=== PATIENT | male | born 1945 | race Caucasian/White ===

== ENCOUNTER → 2017-10-18 10:00 | Outpatient (CLI) | payer MEDICARE, OTHER, SELFPAY | PROVIDERS: PCP Emergency Medicine; Visit Provider Orthopaedic Surgery | DX: M25.562 Pain in left knee (principal) | CPT/HCPCS: 99213 ==

== ENCOUNTER 2017-10-25 00:33 | Outpatient (CLI) | payer MEDICARE, OTHER, SELFPAY ==
--- NOTE | 2017-10-25 08:40 | DI.MRI_ITS ---
SYMPTOM/DIAGNOSIS: LT TORN MEDIAL MENISCUS TEAR, LT KNEE PAIN LEFT KNEE MRI: 10/25 MRI examination of the knee was performed according to the usual protocol. There is a moderate size knee joint effusion. There is irregular cartilage thinning at the patellofemoral joint consistent with degenerative change. There also appears to be cartilage thinning of the articular cartilage of medial and lateral tibiofemoral joints although the cartilage is not ideally displayed on this examination. There is no evidence of a cruciate ligament tear. Medial meniscus shows deformity of the body and posterior horn with a probable posterior horn attachment tear and possible mid-body tear. Lateral meniscus appears intact. No significant lateral collateral ligament tear. No significant medial collateral ligament tear. There is abnormal signal of medial tibial plateau which may represent findings related to DJD vs a bony trabecular injury. No other significant bony signal abnormality seen. CONCLUSION: Degenerative changes and presumed medial meniscal tear involving the posterior attachment as described above.
== END 2017-10-25 00:53 ==
PROVIDERS: PCP Emergency Medicine; Visit Provider Orthopaedic Surgery
DX: M25.562 Pain in left knee (principal); M17.12 Unilateral primary osteoarthritis, left knee; S83.242A Other tear of medial meniscus, current injury, left knee, initial encounter
CPT/HCPCS: 73721

== ENCOUNTER → 2017-11-02 08:18 | Outpatient (BNVA) | payer MEDICARE, OTHER, SELFPAY | PROVIDERS: PCP Emergency Medicine; Visit Provider Orthopaedic Surgery | DX: S83.232A Complex tear of medial meniscus, current injury, left knee, initial encounter (principal); M17.12 Unilateral primary osteoarthritis, left knee; X58.XXXA Exposure to other specified factors, initial encounter | CPT/HCPCS: 99213 ==

== ENCOUNTER 2017-12-16 10:33 | Outpatient (CLI) | payer MEDICARE, OTHER, SELFPAY ==
[2017-12-16 13:22] LABS: Hemoglobin A1C 9.1 % (4.5-6.2)
[2017-12-16 13:28] LABS: ALT 29 U/L (12-78); AST 15 U/L (15-37); Alkaline Phosphatase 53 U/L (46-116); Anion Gap 14.4 mmol/L (3-11); BUN 21 mg/dL (7-18); Bilirubin, Total 0.5 mg/dL (0.2-1.0); CO2 25.6 mmol/L (21.0-32.0); CREATININE 1.32 mg/dL (0.70-1.30); Calcium 9.8 mg/dL (8.5-10.1); Chloride 98 mmol/L (98-107); Estimated GFR 53.02 (mL/min/1.73m2); Glucose 259 mg/dL (70-100); Potassium 4.8 mmol/L (3.5-5.1); Sodium 138 mmol/L (136-145); Total Protein 7.2 g/dL (6.4-8.2)
[2017-12-19 10:10] LABS: PSA, Screening 11.4 ng/ml (0-6.5)
== END 2017-12-16 10:53 ==
PROVIDERS: PCP Emergency Medicine; Visit Provider Emergency Medicine
DX: E11.9 Type 2 diabetes mellitus without complications (principal); R97.20 Elevated prostate specific antigen [PSA]; I10 Essential (primary) hypertension; Z12.5 Encounter for screening for malignant neoplasm of prostate
CPT/HCPCS: 36415; 80053; 84153; 83036

== ENCOUNTER 2018-11-28 07:00 | Outpatient (CLI) | payer MEDICARE, OTHER, SELFPAY ==
[2018-11-28 13:23] LABS: Anion Gap 7.7 mmol/L (3-11); BUN 21 mg/dL (7-18); CO2 28.3 mmol/L (21.0-32.0); CREATININE 1.31 mg/dL (0.70-1.30); Calcium 9.4 mg/dL (8.5-10.1); Calculated LDL 128 mg/dL; Chloride 102 mmol/L (98-107); Cholesterol 202 mg/dL (50-200); Estimated GFR 53.34 (mL/min/1.73m2); Glucose 279 mg/dL (70-100); HDL Cholesterol 38 mg/dL (40-60); Potassium 4.5 mmol/L (3.5-5.1); Sodium 138 mmol/L (136-145); Triglyceride 181 mg/dL (30-150)
[2018-11-28 13:24] LABS: Hemoglobin A1C 9.8 % (4.5-6.2)
[2018-11-29 10:01] LABS: PSA, Diagnostic 13.6 ng/ml (0-6.5)
== END 2018-11-28 07:20 ==
PROVIDERS: PCP Emergency Medicine; Visit Provider Emergency Medicine
DX: E11.9 Type 2 diabetes mellitus without complications (principal); C61 Malignant neoplasm of prostate
CPT/HCPCS: 36415; 80048; 80061; 83036; 84153

== ENCOUNTER 2019-12-18 12:03 | Outpatient (REF) | payer MEDICARE, OTHER, SELFPAY ==
[2019-12-18 14:20] LABS: Anion Gap 7.3 mmol/L (3-11); BUN 19 mg/dL (7-18); CO2 28.7 mmol/L (21.0-32.0); CREATININE 1.35 mg/dL (0.70-1.30); Calcium 9.9 mg/dL (8.5-10.1); Chloride 100 mmol/L (98-107); Estimated GFR 51.38 (mL/min/1.73m2); Glucose 214 mg/dL (74-106); Potassium 4.5 mmol/L (3.5-5.1); Sodium 136 mmol/L (136-145)
[2019-12-18 14:32] LABS: Hemoglobin A1C 8.1 % (<5.7)
[2019-12-27 12:45] LABS: PSA, Diagnostic 19.9 ng/ml (0-6.5)
== END 2019-12-18 12:23 ==
LOC: LBN 12:03
PROVIDERS: PCP Emergency Medicine; Visit Provider Emergency Medicine
DX: E11.9 Type 2 diabetes mellitus without complications (principal); I10 Essential (primary) hypertension; C61 Malignant neoplasm of prostate
CPT/HCPCS: 80048; 83036; 84153

== ENCOUNTER → 2020-02-04 09:25 | Outpatient (BNVA) | payer MEDICARE, OTHER, SELFPAY | PROVIDERS: PCP Emergency Medicine; Referring Provider Emergency Medicine; Visit Provider Nurse Practitioner Gerontology | DX: N40.2 Nodular prostate without lower urinary tract symptoms (principal); R97.20 Elevated prostate specific antigen [PSA]; I10 Essential (primary) hypertension; E11.9 Type 2 diabetes mellitus without complications | CPT/HCPCS: 99204; 99215 ==

== ENCOUNTER 2020-05-02 14:52 | Outpatient (CLI) | payer MEDICARE, OTHER, SELFPAY ==
--- NOTE | 2020-05-02 14:45 | RT.EKG_ITS ---
APPROVED REPORT Exam: Resting ECG Patient Location: O HR:131 bpm ECG Measurements Heart Rate 131 AXIS SD 167 P -9 QRSd 133 QRS -58 QT 359 T 68 QTc 532 Conclusion Sinus tachycardia...rate> 99 RBBB and LAFB...QRSd >120mS, axis(-40,240) Borderline ST elevation, lateral leads...ST >0.06mV, I aVL V5 V6
== END 2020-05-02 14:53 | disposition home or self-care (01) ==
LOC: DI.CM 14:53
PROVIDERS: PCP Emergency Medicine; Visit Provider Emergency Medicine
DX: I10 Essential (primary) hypertension (principal); R00.0 Tachycardia, unspecified; I45.2 Bifascicular block
CPT/HCPCS: 93010

== ENCOUNTER 2020-05-02 15:52 | Emergency (ER) | payer MEDICARE, OTHER, SELFPAY ==
[2020-05-02] VITALS (81 sets, daily range): BP systolic 86–156; BP diastolic 50–113; PULSE 98–128; RESP 12–45; TEMP 37.7–39.7; O2SAT 88–100
--- NOTE | 2020-05-02 15:30 | RT.EKG_ITS ---
APPROVED REPORT Exam: Resting ECG Patient Location: E HR:118 bpm ECG Measurements Heart Rate 118 AXIS UT 175 P 38 QRSd 137 QRS -49 QT 329 T 27 QTc 462 Conclusion Sinus tachycardia...rate> 99 RBBB and LAFB...QRSd >120mS, axis(-40,240)
--- NOTE | 2020-05-02 15:46 | NUR.NOTE ---
[facility] [phone]
[2020-05-02] MEDS: Acetaminophen 325 MG TAB 650 MG PO (16:06)
[2020-05-02] MEDS: Normal Saline 1,000 ML 1000 ML IV (16:30)
[2020-05-02 16:42] LABS: Abs Immature Grans 0.43 10^3/uL (0.0-0.06); Basophils % 0.3; HCT 40.5 % (40.0-50.0); HGB 13.9 g/dL (13.5-17.5); Immature Grans % 2.3; Lymphocytes % 2.6; MCH 29.2 pg (27.0-33.0); MCHC 34.3 % (32.0-36.0); MCV 85.1 fL (80-95); MPV 9.3 fL (8.0-11.0); Neutrophils % 87.8; Nucleated RBC 0 %; Platelet Count 309 10^3/uL (130-400); RBC 4.76 10^6/uL (4.36-5.78); RDW 11.6 % (11.8-14.1); RDW-SD 35.8 fL; WBC 18.96 10^3/uL (4.4-10.8)
[2020-05-02 16:45] LABS: Absolute Basophil Count 0.06 10^3/uL (0.0-0.2); Absolute Lymphocyte Count 0.49 10^3/uL (1.2-3.4); Absolute Monocyte Count 1.33 10^3/uL (0.1-0.8); Absolute Neutrophil Count 16.65 10^3/uL (1.2-6.7)
[2020-05-02 16:46] LABS: Lactate 2.4 mmol/L (0.6-1.4)
[2020-05-02 16:57] LABS: INR 1.1 (0.9-1.1); PTT Activated 29.9 sec (21.0-27.5); Prothrombin Time 10.7 sec (9.3-11.0)
--- NOTE | 2020-05-02 17:00 | DI.RAD_ITS ---
EXAM: XR PORTABLE CHEST AP CLINICAL HISTORY: fever, sirs TECHNIQUE: COMPARISON: CT CT CHEST/ABD/PEL W from 05/02/2020 FINDINGS: Portable upright chest at 1740 hours. The heart is not enlarged. Lungs appear grossly clear and wel l expanded. IMPRESSION: No evidence of acute process. RADIATION DOSE DELIVERED: Total DLP
[2020-05-02 17:02] LABS: ALT 29 U/L (16-63); AST 28 U/L (15-37); Alkaline Phosphatase 76 U/L (46-116); Anion Gap 11.1 mmol/L (3-11); BUN 31 mg/dL (7-18); Bilirubin, Total 1.3 mg/dL (0.2-1.0); CO2 23.9 mmol/L (21.0-32.0); CREATININE 1.8 mg/dL (0.70-1.30); Calcium 8.7 mg/dL (8.5-10.1); Chloride 92 mmol/L (98-107); Estimated GFR 36.87 (mL/min/1.73m2); Glucose 302 mg/dL (74-106); Lipase 321 U/L (73-393); Magnesium 2.4 mg/dL (1.8-2.4); Potassium 3.9 mmol/L (3.5-5.1); Sodium 127 mmol/L (136-145); Total Protein 8.1 g/dL (6.4-8.2); Troponin I < 0.05 ng/mL (<0.06)
[2020-05-02 17:20] LABS: COVID-19 PCR Negative (Negative); Influenza A PCR Negative (Negative); Influenza B PCR Negative (Negative); RSV PCR Negative (Negative)
[2020-05-02] MEDS: Lactated Ringers 1,000 ML 1000 ML IV (17:45)
--- NOTE | 2020-05-02 18:06 | DI.VRAD_ITS ---
PROCEDURE INFORMATION: Exam: XR Chest Exam date and time: 05/02/2020 5:48 PM Age: 74 years old Clinical indication: Other: Fever, sirs TECHNIQUE: Imaging protocol: XR of the chest Views: 1 view. COMPARISON: No relevant prior studies available. FINDINGS: Lungs: Unremarkable. No consolidation. Pleural spaces: Unremarkable. No pleural effusion. No pneumothorax. Heart/Mediastinum: Unremarkable. No cardiomegaly. Vasculature: The aorta demonstrates moderate atherosclerotic calcification. Bones/joints: Chronic degenerative changes of the spine are present. IMPRESSION: No evidence of acute cardiopulmonary disease. Dictated and Authenticated by: Theo Campbell MD. Ordering:MARILYN Piña MD
--- NOTE | 2020-05-02 19:01 | W.ED.GENAD ---
Discharge Plan Disposition Patient Disposition: [facility] Condition: Serious Discharge Details Clinical Impression: Acute febrile illness, Sepsis, Osteomyelitis of ankle, right, acute Primary Care Provider: Sujit Barros ED Provider: Michael Benjamin Home Meds and New Rx's Prescriptions: No Action aspirin [Ecotrin Low Strength] 81 mg tablet,delayed release (DR/EC) 81 mg PO DAILY Qty: 90 RF: 3 (DME) Blood Glucose Test Strip 1 ea Miscellaneous DAILY Qty: 180 RF: 4 glipizide [Glucotrol XL] 10 mg tablet extended release 24hr 10 mg PO DAILY Qty: 90 RF: 3 ibuprofen 800 mg tablet 800 mg PO BID PRN (Reason: pain) Qty: 100 RF: 0 lisinopril-hydrochlorothiazide 10-12.5 mg tablet 1 tab PO DAILY Qty: 180 RF: 3 (DME) lancets 28 gauge misc 1 ea Miscellaneous DAILY Qty: 1001 RF: 4 metformin [Glucophage] 1,000 mg tablet 1,000 mg PO BID Qty: 360 RF: 3 levofloxacin 500 mg tablet 500 mg PO DAILY Qty: 3 RF: 0 (DME) blood-glucose meter 1 EACH misc 1 ea Miscellaneous DAILY Qty: 1 RF: 0 (DME) blood-glucose meter [OneTouch UltraMini] 1 EACH kit 1 ea Miscellaneous DAILY Qty: 1 RF: 0 triamcinolone acetonide 0.1 % cream 1 applic TP BID Qty: 30 RF: 4 Discharge Data Discharge Date/Time-TO BE ENTERED AT DEPARTURE: 05/03/20 02:43 Medical Decision Making <Wang Shah MD - Last Filed: 05/16/20 20:46> 74-year-old male with multiple component including poorly controlled diabetes, hypertension, here with bilateral distal anterior lower leg pain over the past 1 week. Patient sent by primary care physician because he looked unwell and was tachycardic in the office. Patient is still tachycardic in the 130s, mildly hypertensive, and significantly febrile with a rectal temperature of 39.7C. Considered Covid. Patient did receive second shot recently within the past week. Covid testing was performed and negative. Labs reviewed: Patient does have significant leukocytosis of 19,000 as well as a lactate of 2.4 on arrival. Concern for significant infection. His creatinine is mildly elevated at 1.8 with an elevated BUN consistent with hypovolemia. Patient will be resuscitated with crystalloid. He is received 1 L and is on a second liter of LR. Considered pneumonia. Chest x-ray reviewed and interpreted by radiology: No evidence of acute cardiopulmonary disease. Suspect urinary tract infection. UA pending. Patient reassessed and heart rate has significantly improved to now 100 bpm. Remains normotensive. 2119??CT of the chest was interpreted by radiology: Atherosclerotic coronary artery disease. No evidence of pulmonary embolism or aortic dissection. CT of the abdomen pelvis was interpreted by radiology: Status post cholecystectomy. Mild diverticulosis. Patient was given additional [address] Patient reassessed and BP stable. Heart rate remains stable around 100. Unclear source. Plan to treat broadly with vancomycin and Zosyn. I called and spoke with Dr. Farah discussed ED presentation and course including diagnostics. She will assess the patient for admission the patient. --patient was assessed by hospitalist who noted septic necrotic right foot that was not apparent on my initial examination. I called [facility] [place] transfer center to request immediate transfer. Patient to transfer center called back sometime later noted at capacity cannot accept the patient. I obtained x-ray of the foot. X-ray interpreted by radiology as air and soft tissue toes 3-5. I suspect this is the patient's source of infection. Call to [facility] transfer center to request transfer. I spoke with on-call hospitalist who recommended consultation with orthopedics for excepted to their service. I spoke with Dr. Mullins, on-call orthopedic physician who will accept the patient in transfer. Transfer will be slightly delayed given weather conditions but will arrange for ambulance transfer as soon as possible. I did call to update the patient's family as to change in disposition and left voice message to call back ED. <Michael Benjamin MD - Last Filed: 05/03/20 02:33> Pt has remained hemodynamically stable during stay here with no hypotension after sign out to me, ems arrived and even then remained stable. Will be transferred to [facility] <Wang Shah MD - Last Filed: 05/16/20 20:46> General Mode of arrival: EMS. Date/Time Provider Initiated Documentation: 05/02/20 17:05. Limitations to Documentation: no limitations. Information obtained by: patient, RN/MD and EMS. HPI Narrative: 74-year-old male with history of poorly controlled diabetes, hypertension, abnormal PSA, sent from primary care physician office. Chief complaint of leg pain. Patient notes bilateral anterior lower leg pain distal to his knees. This started about a week ago and has persisted. Patient also has generalized weakness and fatigue. Primary care physician saw him in the office today and was concerned that he was tachycardic and appeared pale. Patient denies pain other than in his anterior legs. Denies abdominal pain. No chest pain or shortness of breath. Patient denies fever. No dysuria. No cough. Related Data Home Medications Medication Instructions Recorded Confirmed blood-glucose meter #1 ea 12/15/16 02/04/20 blood-glucose meter [Onetouch #1 kit 12/15/16 02/04/20 Ultramini] triamcinolone acetonide 0.1 % 1 applic TP BID #30 gm 12/01/18 05/02/20 topical cream aspirin 81 mg tablet,delayed 81 mg PO DAILY #90 tab-cap 12/18/19 05/02/20 release blood sugar diagnostic #180 strip 12/18/19 02/04/20 glipizide 10 mg tablet, extended 10 mg PO DAILY #90 tab-cap 12/18/19 05/02/20 release 24 hr ibuprofen 800 mg tablet 800 mg PO BID PRN #100 tab-cap 12/18/19 05/02/20 lancets 28 gauge #1001 ea 12/18/19 02/04/20 lisinopril 10 1 tab PO DAILY #180 tab-cap 12/18/19 05/02/20 mg-hydrochlorothiazide 12.5 mg tablet metformin 1,000 mg tablet 1,000 mg PO BID #360 tab-cap 12/18/19 05/02/20 levofloxacin 500 mg tablet 500 mg PO DAILY #3 tab 02/04/20 05/02/20 Previous Rx's Medication Instructions Recorded blood-glucose meter #1 ea 12/15/16 blood-glucose meter [Onetouch #1 kit 12/15/16 Ultramini] triamcinolone acetonide 0.1 % 1 applic TP BID #30 gm 12/01/18 topical cream aspirin 81 mg tablet,delayed 81 mg PO DAILY #90 tab-cap 12/18/19 release blood sugar diagnostic #180 strip 12/18/19 glipizide 10 mg tablet, extended 10 mg PO DAILY #90 tab-cap 12/18/19 release 24 hr ibuprofen 800 mg tablet 800 mg PO BID PRN #100 tab-cap 12/18/19 lancets 28 gauge #1001 ea 12/18/19 lisinopril 10 1 tab PO DAILY #180 tab-cap 12/18/19 mg-hydrochlorothiazide 12.5 mg tablet metformin 1,000 mg tablet 1,000 mg PO BID #360 tab-cap 12/18/19 levofloxacin 500 mg tablet 500 mg PO DAILY #3 tab 02/04/20 Allergies Allergy/AdvReac Type Severity Reaction Status Date / Time No Known Allergies Allergy Verified 05/02/20 16:17 General Stated Complaint: GenMedical TEJAS: 2 Review of Systems <Wang Shah MD - Last Filed: 05/16/20 20:46> All systems reviewed & are unremarkable except as noted in HPI and below Constitutional Constitutional: Denies fever(s) Cardiovascular Cardiovascular: Denies chest pain Respiratory Respiratory: Reports as per HPI PFSH <Wang Shah MD - Last Filed: 05/16/20 20:46> Medical History (Updated 05/16/20 @ 20:46 by Wang Shah MD) Abdominal pain Abnormal PSA Diabetes mellitus (05/24/12) Essential hypertension (11/20/12) Prostate cancer Surgical History Cholecystectomy Colonoscopy - MAC Family History Mother Essential hypertension Heart disease Stroke Father No problems noted. Brother No problems noted. Brother Diabetes Stroke Son Cancer Daughter No problems noted. Daughter No problems noted. Sister No problems noted. Sister No problems noted. Social History Smoking/Tobacco Use Status: Never Smoking risk assessment performed?: Yes Alcohol Intake: never Drug use: Never Substance use type: does not use Caregiver/Support person: No Household members: spouse Housing: apartment Communication Needs: None Pets and animals: No Sexually active: No Current gender identity: male What is your relationship status?: How often do you talk on the phone with friends or family?: decline to answer How often do you get together with friends or relatives?: decline to answer How often do you attend hindu or jew services?: decline to answer Do you belong to any clubs or organized social groups?: decline to answer Panel score (0-1 are the most socially isolated patients): 1 What type of physical activity do you participate in: decline to answer Duration: < 15 minutes/day Frequency: 1-2 times per week Bekah/Zoroastrian: Anglican Special bekah needs: No Seatbelt use: always Helmet use: No Do you feel safe at home: Yes Do you feel safe in your relationship?: Yes Victim of physical abuse: No Victim of emotional abuse: No Victim of sexual abuse: No Would you like helpful sources: No Exam <Wang Shah MD - Last Filed: 05/16/20 20:46> Const General: cooperative and no acute distress HENMT Mouth: mucous membranes dry Eyes Conjunctivae: normal conjunctivae Sclera: normal sclerae Neck Neck: trachea midline and supple Resp Auscultation: clear to auscultation bilaterally, no rales, no rhonchi and no wheezes Cardio Rate: tachycardic Rhythm: regular rhythm GI Palpation: soft, not firm, no guarding, no masses, not rigid and nontender Skin General skin exam: no rashes or lesions noted Neuro General: patient alert, patient awake, patient oriented x3 and tone normal Extrem General: no calf tenderness, no edema and no pedal edema Psych Appearance: grossly normal Mental Status: mental status grossly normal Speech and Movement: speech and movement normal Course <Wang Shah MD - Last Filed: 05/16/20 20:46> Vital Signs Vital signs: Vital Signs Temperature 39.7 C H 05/02/20 15:45 Pulse 128 H 05/02/20 15:45 Respiratory Rate 26 H 05/02/20 15:45 Blood Pressure 154/91 H 05/02/20 15:45 Pulse Oximetry 98 05/02/20 15:45 Temperature 37.7 C H 05/02/20 16:49 Temperature Source Skin 05/02/20 16:49 Pulse 114 H 05/02/20 17:01 Pulse 115 H 05/02/20 17:01 Respiratory Rate 12 05/02/20 17:01 Respiratory Effort Non-Labored 05/02/20 16:17 Blood Pressure 119/101 H 05/02/20 17:01 Blood Pressure Mean 105 05/02/20 17:01 Blood Pressure Position Supine 05/02/20 15:45 Pulse Oximetry 99 05/02/20 17:01 Oxygen Delivery Method Room Air 05/02/20 15:45 Oxygen Flow Rate 0 05/02/20 15:45 Pain Level 0 05/02/20 15:45 Lab/Test Results Lab/Test Results: 05/02/20 16:20 Blood Blood Culture - Pending 05/02/20 15:55 Blood Blood Culture - Pending Laboratory Tests Range/Units 05/02/20 05/02/20 05/02/20 16:20 16:20 16:20 WBC (4.4-10.8) 10^3/uL 18.96 H RBC (4.36-5.78) 10^6/uL 4.76 Hgb (13.5-17.5) g/dL 13.9 Hct (40.0-50.0) % 40.5 MCV (80-95) fL 85.1 MCH (27.0-33.0) pg 29.2 MCHC (32.0-36.0) % 34.3 RDW (11.8-14.1) % 11.6 L Plt Count (130-400) 10^3/uL 309 MPV (8.0-11.0) fL 9.3 Immature Gran % 2.3 Neutrophils % 87.8 Lymphocytes % 2.6 Monocytes % 7.0 Eosinophils % 0.0 Basophils % 0.3 Nucleated RBC % % 0 Absolute Neutrophils (1.2-6.7) 10^3/uL 16.65 H Absolute Lymphocytes (1.2-3.4) 10^3/uL 0.49 L Absolute Monocytes (0.1-0.8) 10^3/uL 1.33 H Absolute Eosinophils (0.0-0.7) 10^3/uL 0.00 Absolute Basophils (0.0-0.2) 10^3/uL 0.06 PT (9.3-11.0) sec INR (0.9-1.1) APTT (21.0-27.5) sec VBG Lactate (0.6-1.4) mmol/L 2.4 H* Sodium (136-145) mmol/L 127 L Potassium (3.5-5.1) mmol/L 3.9 Chloride (98-107) mmol/L 92 L Carbon Dioxide (21.0-32.0) mmol/L 23.9 Anion Gap (3-11) mmol/L 11.1 H BUN (7-18) mg/dL 31 H Creatinine (0.70-1.30) mg/dL 1.8 H Estimated GFR/1.73 m2 (mL/min/1.73m2) 36.87 Glucose (74-106) mg/dL 302 H Calcium (8.5-10.1) mg/dL 8.7 Magnesium (1.8-2.4) mg/dL 2.4 Total Bilirubin (0.2-1.0) mg/dL 1.3 H AST (15-37) U/L 28 ALT (16-63) U/L 29 Alkaline Phosphatase (46-116) U/L 76 Troponin I (<0.06) ng/mL < 0.05 Total Protein (6.4-8.2) g/dL 8.1 Albumin (3.4-5.0) g/dL 3.0 L Lipase (73-393) U/L 321 COVID-19 Source SARS-CoV-2 (PCR) (Negative) Influenza Type A (PCR) (Negative) Influenza Type B (PCR) (Negative) RSV (PCR) (Negative) Patient ABO/Rh Antibody Screen Range/Units 05/02/20 05/02/20 05/02/20 16:20 16:20 16:35 WBC (4.4-10.8) 10^3/uL RBC (4.36-5.78) 10^6/uL Hgb (13.5-17.5) g/dL Hct (40.0-50.0) % MCV (80-95) fL MCH (27.0-33.0) pg MCHC (32.0-36.0) % RDW (11.8-14.1) % Plt Count (130-400) 10^3/uL MPV (8.0-11.0) fL Immature Gran % Neutrophils % Lymphocytes % Monocytes % Eosinophils % Basophils % Nucleated RBC % % Absolute Neutrophils (1.2-6.7) 10^3/uL Absolute Lymphocytes (1.2-3.4) 10^3/uL Absolute Monocytes (0.1-0.8) 10^3/uL Absolute Eosinophils (0.0-0.7) 10^3/uL Absolute Basophils (0.0-0.2) 10^3/uL PT (9.3-11.0) sec 10.7 INR (0.9-1.1) 1.1 APTT (21.0-27.5) sec 29.9 H VBG Lactate (0.6-1.4) mmol/L Sodium (136-145) mmol/L Potassium (3.5-5.1) mmol/L Chloride (98-107) mmol/L Carbon Dioxide (21.0-32.0) mmol/L Anion Gap (3-11) mmol/L BUN (7-18) mg/dL Creatinine (0.70-1.30) mg/dL Estimated GFR/1.73 m2 (mL/min/1.73m2) Glucose (74-106) mg/dL Calcium (8.5-10.1) mg/dL Magnesium (1.8-2.4) mg/dL Total Bilirubin (0.2-1.0) mg/dL AST (15-37) U/L ALT (16-63) U/L Alkaline Phosphatase (46-116) U/L Troponin I (<0.06) ng/mL Total Protein (6.4-8.2) g/dL Albumin (3.4-5.0) g/dL Lipase (73-393) U/L COVID-19 Source Nasopharyx SARS-CoV-2 (PCR) (Negative) Negative Influenza Type A (PCR) (Negative) Negative Influenza Type B (PCR) (Negative) Negative RSV (PCR) (Negative) Negative Patient ABO/Rh O Positive Antibody Screen Negative Sign Out <Wang Shah MD - Last Filed: 05/16/20 20:46> Sign Out Data: Sign Out Comment: Care signed out to Dr. Benjamin with plan for transfer pending. Please see documentation regarding initial presentation course. Last updated by Wang Shah MD at 05/03/20 00:14
[2020-05-02 19:29] LABS: Bilirubin Negative (Negative); Blood Moderate (Negative); Clarity Clear (Clear); Glucose 500 mg/dL (Negative); Ketones 15 mg/dL (Negative); Leukocyte Esterase Negative (Negative); Nitrite Negative (Negative); pH 5.5 (5-8)
[2020-05-02 19:37] LABS: WBC 0-2 HPF (0-5)
[2020-05-02 19:38] LABS: Bacteria Negative HPF (Negative); C & S Indicated? No; Casts 0-2 Coarse Granular LPF (Negative); Crystals Negative HPF (Negative); Epithelial Cells Few HPF (Negative); Mucus Negative (Negative)
--- NOTE | 2020-05-02 20:09 | DI.CT_ITS ---
EXAM: CT CHEST/ABD/PEL W TECHNIQUE: CT angiography of the chest, abdomen and pelvis was performed with bolus infusion of one hundred cc of Omnipaque 350. Axial CT angiography was performed with multi-slice acquisition and multi-planar and/or 3D reconstruc tions. COMPARISON: No exams were available for comparison FINDINGS: The lungs are clear with minimal areas of dependent atelectasis or scarring.. No pleural effusion. No evidence of pulmonary embolic disease. No thoracic aortic dissection or aneurysm. Major branches o f the thoracic aorta appear normal except for dense wall calcifications. No definite stenosis.. No pleural effusion. No mediastinal or hilar adenopathy. Tracheobronchial tree appears intact. Coronary artery calcification is noted. Probable mild hepatic steatosis noted. No focal hepatic or renal abnormality seen. Prior cholecyste ctomy noted, bile ducts are CT normal. Pancreas is unremarkable. Spleen shows unremarkable early jose alberto rial phase pattern of enhancement. Gastric distension noted, nonspecific. No evidence of bowel obstruction. Heavily calcified abdominal aorta and major branch vessels noted. No definite high-grade visceral br anch stenosis seen.. Major branches of the abdominal aorta appear normal. No abdominal or pelvic maxi nopathy. Normal appendix. No significant abdominal wall hernia. No focal bowel pathology. IMPRESSION: No evidence of acute vascular abnormality of the chest, abdomen or pelvis. There are significant ath eromatous changes of thoracic and abdominal aorta and major branches. Additional findings as described above. RADIATION DOSE DELIVERED: 807.25mGy.cm Total DLP 807.25mGy.cm Total DLP DATA REPOSITORY: All CT scans at this facility are submitted to the National Radiology Data Registry (NRDR) Dose Index Registry (DIR) with the [employer] (ACR). RADIATION OPTIMIZATION: All CT scans at this facility use at least one of these dose optimization te chniques: automated exposure control; mA and/or kV adjustment per patient size (includes targeted exa ms where dose is matched to clinical indication); or iterative reconstruction.
[2020-05-02] MEDS: Normal Saline Flush 10 ML SYR IVP (20:11)
[2020-05-02] MEDS: Omnipaque 350 MG/ML 100 ML BTL IJ (20:12)
[2020-05-02] MEDS: Normal Saline - Diluent 50 ML VIAL IV (20:13)
--- NOTE | 2020-05-02 21:00 | DI.VRAD_ITS ---
PROCEDURE INFORMATION: Exam: CT Chest With Contrast; Diagnostic Exam date and time: 05/02/2020 7:47 PM Age: 74 years old Clinical indication: Other: Sepsis; Prior surgery; Surgery type: Gallbladder TECHNIQUE: Imaging protocol: Diagnostic computed tomography of the chest with contrast. Radiation optimization: All CT scans at this facility use at least one of these dose optimization techniques: automated exposure control; mA and/or kV adjustment per patient size (includes targeted exams where dose is matched to clinical indication); or iterative reconstruction. Contrast material: [id number]; Contrast volume: 100 ml; Contrast route: INTRAVENOUS (IV); COMPARISON: CR XR PORTABLE CHEST AP 05/02/2020 5:33 PM FINDINGS: Lungs: Unremarkable. No consolidation. No masses. Pleural spaces: Unremarkable. No pneumothorax. No pleural effusion. Heart: Coronary artery calcifications are present. Pulmonary arteries: There is satisfactory enhancement of the pulmonary arteries with no evidence of pulmonary embolism. Aorta: The aorta demonstrates mild atherosclerotic calcification. No evidence of aortic dissection. Lymph nodes: Unremarkable. No enlarged lymph nodes. Bones/joints: Chronic degenerative changes of the spine are present. Soft tissues: Unremarkable. IMPRESSION: 1. Atherosclerotic coronary artery disease. 2. No evidence of pulmonary embolism or aortic dissection. PROCEDURE INFORMATION: Exam: CT Abdomen And Pelvis With Contrast Exam date and time: 05/02/2020 7:47 PM Age: 74 years old Clinical indication: Other: Sepsis; Prior surgery; Surgery type: Gallbladder TECHNIQUE: Imaging protocol: Computed tomography of the abdomen and pelvis with contrast. Radiation optimization: All CT scans at this facility use at least one of these dose optimization techniques: automated exposure control; mA and/or kV adjustment per patient size (includes targeted exams where dose is matched to clinical indication); or iterative reconstruction. Contrast material: [id number]; Contrast volume: 100 ml; Contrast route: INTRAVENOUS (IV); COMPARISON: CR XR PORTABLE CHEST AP 05/02/2020 5:33 PM FINDINGS: Liver: Normal. No mass. Gallbladder and bile ducts: Status post cholecystectomy. Pancreas: Normal. No ductal dilation. Spleen: Normal. No splenomegaly. Adrenal glands: Normal. No mass. Kidneys and ureters: Normal. No hydronephrosis. Stomach and bowel: Mild diverticulosis is present. Appendix: The appendix is well-visualized and appears normal. Intraperitoneal space: Unremarkable. No free air. No significant fluid collection. Vasculature: Unremarkable. No abdominal aortic aneurysm. Lymph nodes: Unremarkable. No enlarged lymph nodes. Urinary bladder: Unremarkable as visualized. Reproductive: Unremarkable as visualized. Bones/joints: Chronic degenerative changes of the spine are present. Soft tissues: Unremarkable. IMPRESSION: 1. Status post cholecystectomy. 2. Mild diverticulosis. Dictated and Authenticated by: Theo Campbell MD. Ordering:MARILYN Piña MD
[2020-05-02] MEDS: Normal Saline 500 ML 1000 ML IV (22:00)
--- NOTE | 2020-05-02 22:10 | PGE_ITS ---
Date of Service Date of service: 05/02/20 Time of Service: 21:45 Subjective Subjective Interval history since last seen: I was called to consider Mr Padilla for a hospitalist admission at our facility. The patient is a 74 year old male with NIDDM2 who has been having neuropathic pain (paresthesias) in bilateral feet and anterior LEs. He has been having several days of chills at home. Despite this, he got his 2nd covid vaccine yesterday. Today, he was tachycardic at his PCP's office and was sent to ED for an evaluation, where he was also found to be febrile. His workup is consistent with sepsis. On physical exam he has an infected diabetic/vascular foot ulcer and gangrene of 5th digit of his right foot which, given his overall septic picture, should be addressed [place] by vascular surgery. It is my recommendation that the patient be transferred to a tertiary care facility where vascular surgery can address above issue within the next 24 hrs. I have communicated this to Dr Shah, who will seek transfer. Objective Last Vital Signs Temp 37.7 C H 05/02/20 16:49 Pulse 102 H 05/02/20 20:46 Resp 26 H 05/02/20 20:50 BP 139/80 05/02/20 20:46 Pulse Ox 97 05/02/20 20:50 Laboratory Results - last 24 hr 05/02/20 05/02/20 05/02/20 16:20 16:20 16:20 WBC 18.96 H RBC 4.76 Hgb 13.9 Hct 40.5 MCV 85.1 MCH 29.2 MCHC 34.3 RDW 11.6 L Plt Count 309 MPV 9.3 Immature Gran % 2.3 Neutrophils % 87.8 Lymphocytes % 2.6 Monocytes % 7.0 Eosinophils % 0.0 Basophils % 0.3 Nucleated RBC % 0 Absolute Neutrophils 16.65 H Absolute Lymphocytes 0.49 L Absolute Monocytes 1.33 H Absolute Eosinophils 0.00 Absolute Basophils 0.06 PT INR APTT VBG Lactate 2.4 H* Sodium 127 L Potassium 3.9 Chloride 92 L Carbon Dioxide 23.9 Anion Gap 11.1 H BUN 31 H Creatinine 1.8 H Estimated GFR/1.73 m2 36.87 Glucose 302 H Calcium 8.7 Magnesium 2.4 Total Bilirubin 1.3 H AST 28 ALT 29 Alkaline Phosphatase 76 Troponin I < 0.05 Total Protein 8.1 Albumin 3.0 L Lipase 321 Urine Color Urine Clarity Urine pH Ur Specific [place] Urine Protein Urine Ketones Urine Blood Urine Nitrite Urine Bilirubin Urine Urobilinogen Ur Leukocyte Esterase Urine RBC Urine WBC Ur Epithelial Cells Urine Crystals Urine Bacteria Urine Casts Urine Mucus Ur Culture Indicated? Urine Glucose COVID-19 Source SARS-CoV-2 (PCR) Influenza Type A (PCR) Influenza Type B (PCR) RSV (PCR) Patient ABO/Rh Antibody Screen 05/02/20 05/02/20 05/02/20 16:20 16:20 16:35 WBC RBC Hgb Hct MCV MCH MCHC RDW Plt Count MPV Immature Gran % Neutrophils % Lymphocytes % Monocytes % Eosinophils % Basophils % Nucleated RBC % Absolute Neutrophils Absolute Lymphocytes Absolute Monocytes Absolute Eosinophils Absolute Basophils PT 10.7 INR 1.1 APTT 29.9 H VBG Lactate Sodium Potassium Chloride Carbon Dioxide Anion Gap BUN Creatinine Estimated GFR/1.73 m2 Glucose Calcium Magnesium Total Bilirubin AST ALT Alkaline Phosphatase Troponin I Total Protein Albumin Lipase Urine Color Urine Clarity Urine pH Ur Specific [place] Urine Protein Urine Ketones Urine Blood Urine Nitrite Urine Bilirubin Urine Urobilinogen Ur Leukocyte Esterase Urine RBC Urine WBC Ur Epithelial Cells Urine Crystals Urine Bacteria Urine Casts Urine Mucus Ur Culture Indicated? Urine Glucose COVID-19 Source Nasopharyx SARS-CoV-2 (PCR) Negative Influenza Type A (PCR) Negative Influenza Type B (PCR) Negative RSV (PCR) Negative Patient ABO/Rh O Positive Antibody Screen Negative 05/02/20 19:15 WBC RBC Hgb Hct MCV MCH MCHC RDW Plt Count MPV Immature Gran % Neutrophils % Lymphocytes % Monocytes % Eosinophils % Basophils % Nucleated RBC % Absolute Neutrophils Absolute Lymphocytes Absolute Monocytes Absolute Eosinophils Absolute Basophils PT INR APTT VBG Lactate Sodium Potassium Chloride Carbon Dioxide Anion Gap BUN Creatinine Estimated GFR/1.73 m2 Glucose Calcium Magnesium Total Bilirubin AST ALT Alkaline Phosphatase Troponin I Total Protein Albumin Lipase Urine Color Yellow Urine Clarity Clear Urine pH 5.5 Ur Specific [place] 1.020 Urine Protein 100 H Urine Ketones 15 H Urine Blood Moderate H Urine Nitrite Negative Urine Bilirubin Negative Urine Urobilinogen 1.0 H Ur Leukocyte Esterase Negative Urine RBC 3-5 H Urine WBC 0-2 Ur Epithelial Cells Few Urine Crystals Negative Urine Bacteria Negative Urine Casts 0-2 coarse granular Urine Mucus Negative Ur Culture Indicated? No Urine Glucose 500 H COVID-19 Source SARS-CoV-2 (PCR) Influenza Type A (PCR) Influenza Type B (PCR) RSV (PCR) Patient ABO/Rh Antibody Screen
--- NOTE | 2020-05-02 22:30 | DI.RAD_ITS ---
EXAM: XR FOOT RT COMPLETE CLINICAL HISTORY: necrotic right foot 5th toe TECHNIQUE: COMPARISON: No exams were available for comparison FINDINGS: Three views were obtained. There are small gas collections in the forefoot predominantly involving t he 3rd through 4th toes and region of the metatarsal heads. No definite bony erosions or destructive process. No fracture seen. IMPRESSION: Soft tissue gas noted as described above, if there is a clinical suspicion of osteomyelitis additiona l evaluation with MRI may be considered. RADIATION DOSE DELIVERED: Total DLP
[2020-05-02 22:34] LABS: C-Reactive Protein 23.26 mg/dL (0.0-0.3)
--- NOTE | 2020-05-02 23:01 | DI.VRAD_ITS ---
Addendum created by Serafin Payne MD on 05/02/2020 11:11:02 PM EST: Examination results of the patient were discussed with DREW Sheldon on 05/02/2020 at 11:10 PM EST. Initial report created on 05/02/2020 11:01:32 PM EST: PROCEDURE INFORMATION: Exam: XR Right Foot Exam date and time: 05/02/2020 10:30 PM Age: 74 years old Clinical indication: Necrotic right foot, 5th toe TECHNIQUE: Imaging protocol: XR Right foot. Views: 3 or more views. COMPARISON: No relevant prior studies available. FINDINGS: Bones/joints: No acute fracture. No dislocation. No plain film evidence to suggest osteomyelitis. Small right calcaneal plantar spur. Soft tissues: Small collections of soft tissue air / emphysematous cellulitis are identified in the proximal right 3rd toe soft tissues, proximal to mid right 4th toe soft tissues, and within the soft tissues of the right 5th toe / medial right 5th MCP joint region. Associated mild soft tissue edema. Vasculature: Arterial calcification. IMPRESSION: 1. Small collections of soft tissue air / emphysematous cellulitis are identified in the proximal right 3rd toe soft tissues, proximal to mid right 4th toe soft tissues, and within the soft tissues of the right 5th toe / medial right 5th MCP joint region. Associated mild soft tissue edema. 2. No plain film evidence to suggest osteomyelitis. Dictated and Authenticated by: Serafin Payne MD. Ordering:MARILYN Piña MD
[2020-05-02 23:02] LABS: Procalcitonin 1.4 ng/mL
[2020-05-03] VITALS (20 sets, daily range): BP systolic 114–137; BP diastolic 51–114; PULSE 94–112; RESP 20–39; O2SAT 98–100
[2020-05-03 00:58] LABS: Lactate 2.4 mmol/L (0.6-1.4)
[2020-05-03] MEDS: PIPERACILLIN/TAZO 4.5 GM in Normal Saline 100 ML IVPB (01:22)
[2020-05-03] MEDS: VANCOMYCIN 1,500 MG in Normal Saline 250 ML 166.6666 MG IVPB (01:42)
--- NOTE | 2020-05-08 08:03 | NUR.NOTE ---
BLOOD CULTURE REPORT FAXED TO [facility]. [phone].Nursing Note:
== END 2020-05-03 02:43 ==
PROVIDERS: Student in an Organized Health Care Education/Training Program; Emergency Provider Emergency Medicine; PCP Emergency Medicine
DX: A41.9 Sepsis, unspecified organism (principal); E11.69 Type 2 diabetes mellitus with other specified complication; M86.171 Other acute osteomyelitis, right ankle and foot; E86.1 Hypovolemia; Z20.822 Contact with and (suspected) exposure to COVID-19
CPT/HCPCS: 74177; 80048; 80053; 83690; 84145; 86850; 86900; 86901; 87040; 87637; 93005; 96360; 96361; 96365; 96375; 99285; NC; 71045; 71260; 73630; 81003; 81015; 83605; 83735; 84484; 85025; 85610; 85730; 86140; 93010; J2543; J3490

== ENCOUNTER 2020-07-16 10:31 | Outpatient (CLI) | payer MEDICARE, OTHER, SELFPAY ==
[2020-07-16 13:11] LABS: Anion Gap 8.1 mmol/L (3-11); BUN 16 mg/dL (7-18); CO2 27.9 mmol/L (21.0-32.0); CREATININE 1.1 mg/dL (0.70-1.30); Calcium 8.9 mg/dL (8.5-10.1); Chloride 104 mmol/L (98-107); Glucose 162 mg/dL (74-106); Potassium 4.6 mmol/L (3.5-5.1); Sodium 140 mmol/L (136-145)
[2020-07-16 13:20] LABS: Hemoglobin A1C 6.3 % (<5.7)
[2020-07-16 13:58] LABS: COMMENT (LAB VIEW ONLY) 139.55 mg/dL
[2020-07-16 14:13] LABS: Microalb ug/mg Crea 79.7 ug/mg Cr
[2020-07-16 17:05] LABS: PSA, Diagnostic 12.3 ng/mL (0.0-6.5)
== END 2020-07-16 10:32 | disposition home or self-care (01) ==
LOC: LOS 10:31
PROVIDERS: PCP Emergency Medicine; Referring Provider Emergency Medicine; Visit Provider Emergency Medicine
DX: I10 Essential (primary) hypertension (principal); E11.9 Type 2 diabetes mellitus without complications; C61 Malignant neoplasm of prostate
CPT/HCPCS: 36415; 80048; 82043; 82570; 83036; 84153

== ENCOUNTER 2020-09-09 14:27 | Outpatient (REF) | payer MEDICARE, OTHER, SELFPAY ==
[2020-09-09 19:31] LABS: Calculated LDL 40 mg/dL (<100); Cholesterol 90 mg/dL (<200); HDL Cholesterol 30 mg/dL (40-60); Triglyceride 101 mg/dL (<150)
== END 2020-09-09 14:28 | disposition home or self-care (01) ==
LOC: LBN 14:27
PROVIDERS: PCP Emergency Medicine; Visit Provider Emergency Medicine
DX: E11.9 Type 2 diabetes mellitus without complications (principal)
CPT/HCPCS: 80061

== ENCOUNTER → 2020-09-17 10:30 | Outpatient (BNVA) | payer MEDICARE, OTHER, SELFPAY | PROVIDERS: PCP Emergency Medicine; Referring Provider Emergency Medicine; Visit Provider Nurse Practitioner Gerontology | DX: R97.20 Elevated prostate specific antigen [PSA] (principal) | CPT/HCPCS: 99214 ==

== ENCOUNTER 2020-12-31 16:57 | Emergency (ER) | payer MEDICARE, OTHER, SELFPAY ==
[2020-12-31 17:24] VITALS: BP 163/84; PULSE 79; RESP 16; TEMP 36.3; O2SAT 99
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
[2020-12-31 19:55] VITALS: BP 154/85; PULSE 91; RESP 18; O2SAT 100
== END 2020-12-31 20:01 | disposition home or self-care (01) ==
PROVIDERS: Emergency Provider Physician Assistant; PCP Emergency Medicine
DX: R07.89 Other chest pain (principal); V47.5XXA Car driver injured in collision with fixed or stationary object in traffic accident, initial encounter
CPT/HCPCS: 99283; 71046

== ENCOUNTER 2021-02-19 11:14 | Emergency (ER) | payer MEDICARE, OTHER, SELFPAY ==
[2021-02-19 11:16] VITALS: BP 158/91; PULSE 113; RESP 18; TEMP 36.1; O2SAT 98
--- NOTE | 2021-02-19 11:24 | NUR.NOTE ---
medication list verified with [facility] medical Nursing Note:
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
[2021-02-19] MEDS: Bacitracin 1 PACKET TP (11:31)
--- NOTE | 2021-02-19 11:32 | NUR.NOTE ---
Nursing Note: Referral and Face to Face given to Care Management for Home Health dressing changes of foot wound. Referral faxed to [facility] for follow up next week for foot wound. Cecilia [place]
[2021-02-19] MEDS: Doxycycline Hyclate 100 MG CAP PO (11:37)
--- NOTE | 2021-02-19 13:21 | PDOC.ERCMACT ---
- If Service Date Differs Date of service: 02/19/21 Time of Service: 13:21 Care Management Activity Note Serina is seen in the ED for a great toe wound. At the request of ED provider, CM coordinates a referral to Home Health for dressing changes but the referral is rejected because Serina has Medicare which has a requirement of a homebound status and Serina is not currently homebound. The ED provider is notified. Serina will follow up with his PCP.
== END 2021-02-19 11:50 | disposition home or self-care (01) ==
PROVIDERS: Emergency Provider Emergency Medicine; PCP Emergency Medicine
DX: E11.622 Type 2 diabetes mellitus with other skin ulcer (principal); L97.519 Non-pressure chronic ulcer of other part of right foot with unspecified severity; E11.51 Type 2 diabetes mellitus with diabetic peripheral angiopathy without gangrene
CPT/HCPCS: 99283

== ENCOUNTER 2021-02-24 19:48 | Outpatient (REF) | payer MEDICARE, OTHER, SELFPAY | END 2021-02-24 19:49 | disposition home or self-care (01) | LOC: LBN 19:48 | PROVIDERS: PCP Emergency Medicine; Visit Provider Emergency Medicine | DX: L97.519 Non-pressure chronic ulcer of other part of right foot with unspecified severity (principal) | CPT/HCPCS: 87077; 87070; 87186; 87205 ==

== ENCOUNTER → 2021-02-26 13:00 | Outpatient (BNVA) | payer MEDICARE, OTHER, SELFPAY | PROVIDERS: PCP Family Medicine; Referring Provider Family Medicine; Visit Provider Physical Therapy Assistant | DX: E11.622 Type 2 diabetes mellitus with other skin ulcer (principal); I73.9 Peripheral vascular disease, unspecified | CPT/HCPCS: 99213 ==

== ENCOUNTER → 2021-03-02 12:52 | Outpatient (BNVA) | payer MEDICARE, OTHER, SELFPAY | PROVIDERS: PCP Family Medicine; Referring Provider Family Medicine; Visit Provider Physical Therapy Assistant | DX: E13.51 Other specified diabetes mellitus with diabetic peripheral angiopathy without gangrene (principal); L97.519 Non-pressure chronic ulcer of other part of right foot with unspecified severity | CPT/HCPCS: 99212 ==

== ENCOUNTER 2021-03-23 16:08 | Outpatient (REF) | payer MEDICARE, OTHER, SELFPAY ==
[2021-03-23 11:39] LABS: Hemoglobin A1C 6.8 % (<5.7)
[2021-03-23 11:40] LABS: ALT 41 U/L (16-63); AST 48 U/L (15-37); Albumin 3.3 g/dL (3.4-5.0); Alkaline Phosphatase 153 U/L (46-116); Anion Gap 9.2 mmol/L (3-11); BUN 12 mg/dL (7-18); Bilirubin, Total 0.8 mg/dL (0.2-1.0); CO2 28.8 mmol/L (21.0-32.0); Calcium 9.1 mg/dL (8.5-10.1); Calculated LDL 59 mg/dL (<100); Chloride 100 mmol/L (98-107); Cholesterol 116 mg/dL (<200); Glucose 146 mg/dL (74-106); HDL Cholesterol 38 mg/dL (40-60); Potassium 4.4 mmol/L (3.5-5.1); Sodium 138 mmol/L (136-145); Total Protein 7.5 g/dL (6.4-8.2); Triglyceride 97 mg/dL (<150)
[2021-03-23 12:53] LABS: COMMENT (LAB VIEW ONLY) 102.13 mg/dL
[2021-03-23 13:02] LABS: Microalb ug/mg Crea 137.3 ug/mg Cr
== END 2021-03-23 16:09 | disposition home or self-care (01) ==
LOC: LBN 16:08
PROVIDERS: PCP Family Medicine; Visit Provider Family Medicine
DX: E11.9 Type 2 diabetes mellitus without complications (principal); I10 Essential (primary) hypertension
CPT/HCPCS: 80053; 80061; 82043; 82570; 83036

== ENCOUNTER 2021-06-23 02:36 | Outpatient (CLI) | payer MEDICARE, OTHER, SELFPAY ==
[2021-06-23 22:52] LABS: PSA, Diagnostic 26.1 ng/mL (<=6.5)
== END 2021-06-23 02:37 | disposition home or self-care (01) ==
LOC: LBO 02:36
PROVIDERS: PCP Family Medicine; Visit Provider Nurse Practitioner Gerontology
DX: R97.20 Elevated prostate specific antigen [PSA] (principal)
CPT/HCPCS: 36415; 84153

== ENCOUNTER 2021-07-21 02:54 | Outpatient (CLI) | payer MEDICARE, OTHER, SELFPAY ==
[2021-07-21 23:07] LABS: PSA, Diagnostic 26.4 ng/mL (<=6.5)
== END 2021-07-21 02:55 | disposition home or self-care (01) ==
LOC: LBO 02:54
PROVIDERS: PCP Family Medicine; Visit Provider Nurse Practitioner Gerontology
DX: N40.0 Benign prostatic hyperplasia without lower urinary tract symptoms (principal); R97.20 Elevated prostate specific antigen [PSA]
CPT/HCPCS: 36415; 84153

== ENCOUNTER 2021-08-22 08:53 | Emergency (ER) | payer MEDICARE, OTHER, SELFPAY ==
[2021-08-22] VITALS (33 sets, daily range): BP systolic 168–205; BP diastolic 49–81; PULSE 36–65; RESP 13–40; TEMP 36.6; O2SAT 94–100
--- NOTE | 2021-08-22 07:45 | RT.EKG_ITS ---
APPROVED REPORT Exam: Resting ECG Reason for Exam: CP Patient Location: E HR:59 bpm ECG Measurements Heart Rate 59 AXIS NC 152 P 70 QRSd 124 QRS -52 QT 473 T 107 QTc 468 Conclusion Second degree AV block, Mobitz II...multiple P waves Nonspecific IVCD with LAD.. Anterolateral infarct, age indeterminate...Q >35mS, flat/neg T, V3-V6,I,aVL
--- NOTE | 2021-08-22 08:00 | DI.RAD_ITS ---
Exam(s) XR PORTABLE CHEST AP EXAM: XR PORTABLE CHEST AP CLINICAL HISTORY: 1 d SOB. TECHNIQUE: 2D digital imaging was performed. COMPARISON: CR,XR XR CHEST 2V PA LATERAL from 12/31/2020 FINDINGS: Single AP portable view. Cardiac pads in place. Heart size is upper normal. The mediastinum is not widened. There are extensive bilateral symmetrical interstitial markings, not previously present, most probabl y interstitial pulmonary edema or interstitial infectious infiltrates. IMPRESSION: Bilateral interstitial pulmonary edema. Heart size is upper normal. Cannot exclude bilateral inters titial infectious etiology. DATA REPOSITORY: RADIATION DOSE DELIVERED: All CT scans at this facility use at least one of these dose optimization techniques: automated exposure control; mA and/or kV adjustment per patient size (includes targeted e xams where dose is matched to clinical indication); or iterative reconstruction.
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
--- NOTE | 2021-08-22 08:15 | RT.EKG_ITS ---
APPROVED REPORT Exam: Resting ECG Reason for Exam: sob Patient Location: E HR:56 bpm ECG Measurements Heart Rate 56 AXIS NJ 445 P -22 QRSd 143 QRS -46 QT 549 T 130 QTc 530 Conclusion Sinus bradycardia. Prolonged NJ interval...NJ >220, V-rate 50- 90 InferiorQ >35mS, II III aVF Abnrm T, consider ischemia, anterolateral lds.. Prolonged QT interval...QTc >500mS
[2021-08-22] MEDS: Aspirin 325 MG TAB PO (08:25)
[2021-08-22 08:27] LABS: Abs Immature Grans 0.05 10^3/uL (0.0-0.06); Absolute Basophil Count 0.06 10^3/uL (0.0-0.2); Absolute Eosinophil Count 0.13 10^3/uL (0.0-0.7); Absolute Lymphocyte Count 2.85 10^3/uL (1.2-3.4); Absolute Monocyte Count 0.97 10^3/uL (0.1-0.8); Absolute Neutrophil Count 6.47 10^3/uL (1.2-6.7); Basophils % 0.6; Eosinophils % 1.2; HCT 37.9 % (40.0-50.0); HGB 12.1 g/dL (13.5-17.5); Immature Grans % 0.5; Lymphocytes % 27.1; MCH 30.2 pg (27.0-33.0); MCHC 31.9 % (32.0-36.0); MCV 95 fL (80-95); MPV 10.7 fL (8.0-11.0); Monocytes % 9.2; Neutrophils % 61.4; Platelet Count 230 10^3/uL (130-400); RBC 4.01 10^6/uL (4.36-5.78); RDW 14.6 % (11.8-14.1); RDW-SD 50.3 fL; WBC 10.53 10^3/uL (4.4-10.8)
[2021-08-22] MEDS: nitroGLYcerin in D5W 50 MG/250 ML BTL IV (08:38)
[2021-08-22 08:47] LABS: ALT 34 U/L (16-63); AST 39 U/L (15-37); Albumin 3.4 g/dL (3.4-5.0); Alkaline Phosphatase 81 U/L (46-116); Anion Gap 10.3 mmol/L (3-11); BUN 21 mg/dL (7-18); Bilirubin, Total 0.9 mg/dL (0.2-1.0); CO2 21.7 mmol/L (21.0-32.0); CREATININE 1.2 mg/dL (0.70-1.30); Calcium 8.8 mg/dL (8.5-10.1); Chloride 103 mmol/L (98-107); Estimated GFR 58.71 (mL/min/1.73m2); Glucose 233 mg/dL (74-106); INR 1.1 (0.9-1.1); Magnesium 1.9 mg/dL (1.8-2.4); NT-proBNP 4227 pg/mL (<300); PTT Activated 23.9 sec (21.0-27.5); Prothrombin Time 10.7 sec (9.3-11.0); Sodium 135 mmol/L (136-145); Total Protein 7.6 g/dL (6.4-8.2); Troponin I 50 ng/L (<or=60)
[2021-08-22 08:48] LABS: Source Nasal/Nares
--- NOTE | 2021-08-22 08:49 | NUR.NOTE ---
pacer pads are on , Atropine is at the bed side Nursing Note:
[2021-08-22] MEDS: Furosemide 20 MG/2 ML VIAL IVP (08:59)
[2021-08-22 09:01] LABS: D-Dimer 710 ng/mlFEU (<500)
--- NOTE | 2021-08-22 09:12 | DI.VRAD_ITS ---
PROCEDURE INFORMATION: Exam: XR Chest Exam date and time: 08/22/2021 8:05 AM Age: 75 years old Clinical indication: Shortness of breath; Patient HX: SOB x 1 day TECHNIQUE: Imaging protocol: Radiologic exam of the chest. Views: 1 view. COMPARISON: CR XR CHEST 2V PA LATERAL 12/31/2020 7:21 PM FINDINGS: Overlying monitoring leads and pads limit evaluation. Lungs: Shallow inspiration. Increased bilateral interstitial markings. Pleural spaces: No pneumothorax or significant pleural effusion. Heart/Mediastinum: Mildly enlarged cardiac silhouette. Aortic atherosclerosis. Bones/joints: Degenerative changes in visualized spine. Other: Cholecystectomy clips. IMPRESSION: Bilateral interstitial edema or pneumonia. Dictated and Authenticated by: Tab Padilla MD. Ordering:SARAH Robert MD
--- NOTE | 2021-08-22 09:15 | RT.EKG_ITS ---
APPROVED REPORT Exam: Resting ECG Reason for Exam: sob Patient Location: E HR:51 bpm ECG Measurements Heart Rate 51 AXIS PA 349 P 19 QRSd 138 QRS -47 QT 499 T 107 QTc 460 Conclusion Sinus bradycardia Prolonged PA interval. Nonspecific IVCD with LAD. Inferior infarct, old...Q >35mS, II III aVF Nonspecific T abnormalities, lateral leads...T <-0.10mV, I aVL V5 V6
[2021-08-22 09:49] LABS: COVID-19 PCR POSITIVE (Negative)
[2021-08-22 11:32] LABS: Troponin I 58 ng/L (<or=60)
== END 2021-08-22 12:50 | disposition short-term general hospital (02) ==
PROVIDERS: Emergency Provider Emergency Medicine; PCP Nurse Practitioner
DX: I44.1 Atrioventricular block, second degree (principal); I11.0 Hypertensive heart disease with heart failure; I50.9 Heart failure, unspecified; U07.1 COVID-19
CPT/HCPCS: 36415; 80053; 87635; 93005; 96365; 96366; 96368; 96375; 99285; 99291; 71045; 83735; 83880; 84484; 85025; 85379; 85610; 85730; 93010; J1941

== ENCOUNTER 2021-09-25 12:17 | Inpatient (IN) | payer MEDICARE, OTHER, SELFPAY ==
[2021-09-25 12:27] VITALS: BP 121/68; PULSE 116; RESP 18; TEMP 37.2; O2SAT 100
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
[2021-09-25 13:17] LABS: Abs Immature Grans 0.15 10^3/uL (0.0-0.06); Absolute Eosinophil Count 0.02 10^3/uL (0.0-0.7); Absolute Monocyte Count 1.32 10^3/uL (0.1-0.8); Absolute Neutrophil Count 12.05 10^3/uL (1.2-6.7); Basophils % 0.3; Eosinophils % 0.1; HCT 35.1 % (40.0-50.0); HGB 11.5 g/dL (13.5-17.5); Lymphocytes % 9.5; MCH 28.8 pg (27.0-33.0); MCHC 32.8 % (32.0-36.0); MCV 88 fL (80-95); MPV 9.2 fL (8.0-11.0); Monocytes % 8.8; Neutrophils % 80.3; Platelet Count 366 10^3/uL (130-400); RBC 3.99 10^6/uL (4.36-5.78); RDW-SD 41.8 fL
[2021-09-25 13:18] LABS: Absolute Basophil Count 0.05 10^3/uL (0.0-0.2); Absolute Lymphocyte Count 1.43 10^3/uL (1.2-3.4)
[2021-09-25 13:20] LABS: Lactate 2.5 mmol/L (0.6-1.4)
[2021-09-25 13:21] LABS: ESR 34 mm/hr (0-20)
--- NOTE | 2021-09-25 13:27 | DI.RAD_ITS ---
Exam(s) XR TOE RT GREAT EXAM: XR TOE RT GREAT CLINICAL HISTORY: infection. TECHNIQUE: 2D digital imaging was performed. Three images were obtained. COMPARISON: CR,XR XR FOOT RT COMPLETE from 05/02/2020 FINDINGS: BONES: No acute fracture is present. No destructive or erosive changes are present in the great toe to suggest osteomyelitis.. Since the prior examination there have been resections of the 3rd, 4th an d 5th toes to the level of the proximal metatarsal bones. JOINTS: No dislocation present. SOFT TISSUE: There is a skin defect at the medial aspect of the distal great toe. Subcutaneous air i s seen in the soft tissues of the great toe which also shows soft tissue swelling. IMPRESSION: 1. No radiographic evidence to suggest osteomyelitis. 2. Soft tissue swelling, subcutaneous air and soft tissue defect in the great toe. 3. Interval amputation of the 3rd, 4th and 5th toes. DATA REPOSITORY: RADIATION DOSE DELIVERED:
[2021-09-25 13:38] LABS: ALT 29 U/L (16-63); AST 33 U/L (15-37); Albumin 2.8 g/dL (3.4-5.0); Alkaline Phosphatase 104 U/L (46-116); Anion Gap 8.3 mmol/L (3-11); BUN 16 mg/dL (7-18); Bilirubin, Total 0.8 mg/dL (0.2-1.0); CO2 25.7 mmol/L (21.0-32.0); CREATININE 1.3 mg/dL (0.70-1.30); Calcium 9.1 mg/dL (8.5-10.1); Chloride 96 mmol/L (98-107); Estimated GFR 53.53 (mL/min/1.73m2); Glucose 189 mg/dL (74-106); Potassium 4.5 mmol/L (3.5-5.1); Sodium 130 mmol/L (136-145); Total Protein 8.1 g/dL (6.4-8.2)
--- NOTE | 2021-09-25 14:02 | NUR.NOTE ---
Nursing Note: Pt to DI & return for ordered exams, wound culture obtained of right great toe & sent to lab, continue to monitor.
[2021-09-25] MEDS: PIPERACILLIN/TAZO 3.375 GM in Normal Saline 50 ML IVPB (14:13)
[2021-09-25] MEDS: VANCOMYCIN 1,000 MG in Normal Saline 250 ML 166.6666 MG IVPB (14:13)
[2021-09-25 14:15] VITALS: TEMP 37.9
[2021-09-25] MEDS: Normal Saline 250 ML IV (14:15)
[2021-09-25 14:17] VITALS: BP 146/73; PULSE 109; TEMP 37.9; O2SAT 99
--- NOTE | 2021-09-25 14:19 | NUR.NOTE ---
Nursing Note: Pt recieving IV tylenol, provider aware of temp 37.9, cont. to monitor.
[2021-09-25 14:29] LABS: Source Nasal/Nares
--- NOTE | 2021-09-25 14:59 | NUR.NOTE ---
Nursing Note:F/U temp 36.8, report given to M/S, pt agrees with admission, pt transferred to M/S.
[2021-09-25 15:13] VITALS: BP 122/71; PULSE 104; RESP 16; TEMP 37.1; O2SAT 98
[2021-09-25 15:22] LABS: COVID-19 PCR Negative (Negative)
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
[2021-09-25] MEDS: Insulin Aspart 300 UNITS/3 ML PEN SC ×2 (18:12→20:59)
[2021-09-25] MEDS: Enoxaparin 40 MG/0.4 ML SYR SC (18:13)
[2021-09-25] MEDS: PIPERACILLIN/TAZO 4.5 GM in Normal Saline 100 ML IVPB (20:31)
[2021-09-25] MEDS: Tamsulosin 0.4 MG CAPCR PO (20:32)
[2021-09-25] MEDS: Atorvastatin 40 MG TAB 80 MG PO (20:32)
[2021-09-25] MEDS: Insulin Glargine 300 UNITS/3 ML PEN 10 UNITS SC (21:00)
[2021-09-25 22:21] VITALS: BP 123/70; PULSE 103; RESP 16; TEMP 36.8; O2SAT 100
[2021-09-26 03:57] VITALS: BP 125/76; PULSE 111; RESP 16; TEMP 37; O2SAT 98
[2021-09-26] MEDS: PIPERACILLIN/TAZO 4.5 GM in Normal Saline 100 ML IVPB ×3 (03:59→20:48)
[2021-09-26 07:30] LABS: Abs Immature Grans 0.16 10^3/uL (0.0-0.06); Absolute Basophil Count 0.03 10^3/uL (0.0-0.2); Absolute Lymphocyte Count 2.01 10^3/uL (1.2-3.4); Absolute Monocyte Count 1.27 10^3/uL (0.1-0.8); Absolute Neutrophil Count 9.89 10^3/uL (1.2-6.7); Basophils % 0.2; Eosinophils % 0.4; HCT 32.1 % (40.0-50.0); HGB 10.5 g/dL (13.5-17.5); Immature Grans % 1.2; MCH 28.4 pg (27.0-33.0); MCHC 32.7 % (32.0-36.0); MCV 87 fL (80-95); MPV 9.1 fL (8.0-11.0); Monocytes % 9.5; Neutrophils % 73.7; Platelet Count 344 10^3/uL (130-400); RDW-SD 41.1 fL; WBC 13.42 10^3/uL (4.4-10.8)
[2021-09-26 07:41] VITALS: BP 137/82; PULSE 104; RESP 18; TEMP 37.3; O2SAT 99
[2021-09-26 07:43] LABS: Anion Gap 7.5 mmol/L (3-11); BUN 13 mg/dL (7-18); CO2 25.5 mmol/L (21.0-32.0); Calcium 8.6 mg/dL (8.5-10.1); Calculated LDL 34 mg/dL (<100); Chloride 101 mmol/L (98-107); Cholesterol 72 mg/dL (<200); Glucose 94 mg/dL (74-106); HDL Cholesterol 25 mg/dL (40-60); Potassium 3.9 mmol/L (3.5-5.1); Sodium 134 mmol/L (136-145); Triglyceride 69 mg/dL (<150)
[2021-09-26 07:49] LABS: Absolute Eosinophil Count 0.05 10^3/uL (0.0-0.7)
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
[2021-09-26 08:28] LABS: Hemoglobin A1C 7.4 % (<5.7)
[2021-09-26] MEDS: Clopidogrel 75 MG TAB PO (08:36)
[2021-09-26] MEDS: Metoprolol CR 50 MG TABCR PO (08:36)
[2021-09-26] MEDS: Normal Saline 500 ML 100 ML IVPB (08:36)
[2021-09-26] MEDS: Lisinopril 20 MG TAB PO (08:36)
[2021-09-26] MEDS: Aspirin E.C. 81 MG TABEC PO (08:36)
[2021-09-26] MEDS: VANCOMYCIN/WATER (PEG) 1 GM/200 ML BAG IV (08:37)
[2021-09-26] MEDS: Triamcinolone 0.1% OINT 15 GM TUBE TP (08:37)
[2021-09-26] MEDS: amLODIPine 10 MG TAB PO (08:37)
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
[2021-09-26] MEDS: Insulin Aspart 300 UNITS/3 ML PEN SC ×2 (11:43→22:21)
[2021-09-26 15:55] VITALS: BP 137/82; PULSE 86; RESP 16; TEMP 36.9; O2SAT 99
--- NOTE | 2021-09-26 16:45 | PGE_ITS ---
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 As per Dr. Ramirez's note patient would probably benefit from a complete transmetatarsal amputation. Professional time spent interviewing and examining patient, discussion of goals of care with hospital team (care management, nursing and consulting professionals) was [address] Juan Ramirez's input greatly appreciated. (2) Diabetic foot infection: Status: Acute Assessment and plan: Continue vancomycin and Zosyn pending results of his blood culture. Check MRSA screen. If MRSA is negative I will plan to discharge him home on Augmentin tomorrow. If his MRSA screen is positive I will discharge him on Augmentin along with an antistaphylococcal medicine such as Bactrim or doxycycline. (3) Peripheral vascular disease due to secondary diabetes: Status: Chronic Assessment and plan: Continue aspirin and Plavix. (4) Type 2 diabetes mellitus with diabetic nephropathy: Status: Acute Assessment and plan: Glycohemoglobin A1c is 7.4% which is not quite optimal control. Goal should be under 7% however his blood sugar here in the hospital seems to be reasonably controlled with goals of 140-180. Currently glucose is running between 93 fasting to 182. Subjective Subjective Interval history since last seen: Patient has no acute complaints denies any nausea vomiting chest pain or dyspnea he has had no fever. His right great toe is without sensation but he has good sensation over the foot as well as the MTP joint. I appreciate Dr. Ramirez's input regarding care of the patient's wound. The plan will be to discharge the patient home on oral antibiotics if his blood culture showed no growth. Patient will follow up with his vascular surgeon in [place] next week. Exam Narrative Exam Narrative: Right great toe is gangrenous there is no obvious purulent smell and there is no obvious purulent discharge from the toe. He has no sensation over the tip of the toe but he has good sensation of the dorsum of the foot and the MTP joint. His previous amputation site appears to be intact with no breakdown of the skin. I cannot palpate pedal pulses in his foot but his foot is warm with no erythema or induration. Objective Last Vital Signs Temp 36.9 C 09/26/21 15:55 Pulse 86 09/26/21 15:55 Resp 16 09/26/21 15:55 BP 137/82 09/26/21 15:55 Pulse Ox 99 09/26/21 15:55 Laboratory Results - last 24 hr 09/26/21 09/26/21 09/26/21 06:40 06:45 06:45 WBC 13.42 H RBC 3.70 L Hgb 10.5 L Hct 32.1 L MCV 87 MCH 28.4 MCHC 32.7 RDW 13.0 Plt Count 344 MPV 9.1 Immature Gran % 1.2 Neutrophils % 73.7 Lymphocytes % 15.0 Monocytes % 9.5 Eosinophils % 0.4 Basophils % 0.2 Nucleated RBC % 0.0 Absolute Neutrophils 9.89 H Absolute Lymphocytes 2.01 Absolute Monocytes 1.27 H Absolute Eosinophils 0.05 Absolute Basophils 0.03 Sodium 134 L Potassium 3.9 Chloride 101 Carbon Dioxide 25.5 Anion Gap 7.5 BUN 13 Creatinine 1.0 Estimated GFR/1.73 m2 >= 60.00 Glucose 94 Hemoglobin A1c 7.4 H Calcium 8.6 Triglycerides 69 Total Cholesterol 72 LDL Cholesterol, Calc 34 HDL Cholesterol 25 L
[2021-09-26] MEDS: Enoxaparin 40 MG/0.4 ML SYR SC (18:06)
[2021-09-26] MEDS: Normal Saline Flush 10 ML SYR IVP ×2 (20:49→20:50)
[2021-09-26] MEDS: Tamsulosin 0.4 MG CAPCR PO (20:49)
[2021-09-26] MEDS: Atorvastatin 40 MG TAB 80 MG PO (20:49)
[2021-09-26] MEDS: Insulin Glargine 300 UNITS/3 ML PEN 10 UNITS SC (22:22)
[2021-09-26 22:26] VITALS: BP 133/74; PULSE 90; RESP 15; TEMP 37.3; O2SAT 99
[2021-09-27] MEDS: VANCOMYCIN/WATER (PEG) 1 GM/200 ML BAG IV (02:48)
[2021-09-27] MEDS: PIPERACILLIN/TAZO 4.5 GM in Normal Saline 100 ML IVPB ×2 (04:28→12:21)
[2021-09-27 05:56] LABS: HCT 32.7 % (40.0-50.0); MCH 29.1 pg (27.0-33.0); MCHC 33.6 % (32.0-36.0); MCV 87 fL (80-95); MPV 9.1 fL (8.0-11.0); Platelet Count 376 10^3/uL (130-400); RBC 3.78 10^6/uL (4.36-5.78); RDW 13.2 % (11.8-14.1); RDW-SD 41.7 fL
[2021-09-27 07:25] VITALS: BP 119/78; PULSE 90; RESP 16; TEMP 37.1; O2SAT 100
[2021-09-27] MEDS: Aspirin E.C. 81 MG TABEC PO (08:36)
[2021-09-27] MEDS: Lisinopril 20 MG TAB PO (08:36)
[2021-09-27] MEDS: Metoprolol CR 50 MG TABCR PO (08:36)
[2021-09-27] MEDS: Clopidogrel 75 MG TAB PO (08:36)
[2021-09-27] MEDS: amLODIPine 10 MG TAB PO (08:36)
--- NOTE | 2021-09-27 10:24 | PGE_ITS ---
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 Clinically, I do not think there is much in terms of active infection to drain. I would continue with basic topical wound care like washing the foot with soap and water. If he apply a small amount of Betadine to toe each day, I think that we will with some desiccation and basic wound care. I think he is best served by following up with his vascular surgeon. If he has particular challenges with, I would consider a consult with podiatry. If there are no other options, I am happy to see him in the office is semielective fashion. Subjective Subjective Interval history since last seen: He says he felt better 3 yesterday and this morning, he is eager to be discharged. He denies any pain, or subjective signs of infection like rigors. Exam Extrem Right lower extremity: foot (Large toe) Other: The toe looks about the same to me. It seems a little more firm over the DIP joint. There is really no erythema at the base of the wound. Objective Last Vital Signs Temp 98.8 F 09/27/21 07:25 Pulse 90 09/27/21 07:25 Resp 16 09/27/21 07:25 BP 119/78 09/27/21 07:25 Pulse Ox 100 09/27/21 07:25 Laboratory Results - last 24 hr 09/27/21 05:30 WBC 13.60 H RBC 3.78 L Hgb 11.0 L Hct 32.7 L MCV 87 MCH 29.1 MCHC 33.6 RDW 13.2 Plt Count 376 MPV 9.1
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
[2021-09-27] MEDS: Insulin Aspart 300 UNITS/3 ML PEN SC (12:16)
[2021-09-27] MEDS: Normal Saline 500 ML 100 ML IVPB (12:20)
--- NOTE | 2021-09-27 12:23 | CMDISCH_ITS ---
- If Service Date Differs Date of service: 09/27/21 Time of Service: 12:23 LACE Index Scoring Tool - Questions: Length of Stay (in days): 1 Acuity (Admit via E.D.?): Yes Comorbidities: PVD, Diabetes w/o Complication, Any Tumor E.D. Visits: 4 - Answers: Total Score: 13 Risk of Readmission: High Risk Care Management Discharge Reason for Hospitalization: Diabetic foot infection Discharge Plan: Geo is discharged home via private vehicle with . New RX's transmitted to [facility] in [place]. Resumption of [facility] RN services is ordered for wound care. Geo will follow up with [facility] on 09/30/21 as scheduled. He will also call his PCP office on Tuesday to schedule a follow up appointment in the next week. Patient/Family Education Needs: Review discharge instructions, limitations, medications and plan to follow up with community providers. ask me three. Services Needed at Discharge: Home Health Care Services (Resumption of [facility] RN. CM notified [facility],)
--- NOTE | 2021-09-27 12:38 | PDOC.HHF2F ---
Home Health Certification Home Health Certification: 1. Encounter Date and Reason I certify that Serina Padilla was seen by Mayito Cassidy on 09/27/21 and that I had a [id number] encounter with this patient that meets the physician face to face encounter requirements. 2. Clinical Findings Supporting Skilled Need and Homebound Status I certify that home health services are medically necessary, include either intermittent half-way and/or physical/speech therapy, and that this patient is homebound in that absences from the home require considerable and taxing effort and are infrequent or of short duration, or are attributable to the need to receive medical care. [X] (a) Attached documentation from encounter provides clinical findings supporting skilled need and homebound status (including what assistance patient requires to leave the home). The encounter with the patient was in whole, or in part, for the following medical condition, which is the primary reason for home health care: Necrotic Diabetic Toe Infection Shelter: nursing to resume home health services to address wound care to patient's gangrenous right great toe. Nursing to educate patient on proper wound care and nursing to coordinate any changes in wound care w/ patient's providers (Dr. Jostin Pace, vascular at [facility] or local PCP, Valarie Saldaña NP) Physical Therapy: Speech Therapy: Homebound: patient is home bound d/t recent worsening of his circulation to his right great toe causing gangrene, making travel outside his home a hazard to his health. 3. Certification and Authentication I certify that I composed the above information based on my clinical judgement relating to this patient's medical condition and, if applicable, clinical findings communicated to me by the NPP or inpatient physician who performed the Home Health Referral. All further orders will be obtained through Valarie Saldaña, N.P. (Community Based Physician - PCP)
== END 2021-09-27 14:45 | disposition home or self-care (01) | DRG 300 ==
LOC: ER 14:55 → MS 15:00
PROVIDERS: Admitting Provider Internal Medicine; Emergency Provider Nurse Practitioner Family; PCP Nurse Practitioner; Visit Provider Internal Medicine
DX: E11.52 Type 2 diabetes mellitus with diabetic peripheral angiopathy with gangrene (principal); E87.1 Hypo-osmolality and hyponatremia; I70.261 Atherosclerosis of native arteries of extremities with gangrene, right leg; L97.518 Non-pressure chronic ulcer of other part of right foot with other specified severity; Z89.421 Acquired absence of other right toe(s); I49.5 Sick sinus syndrome; E78.00 Pure hypercholesterolemia, unspecified; I11.0 Hypertensive heart disease with heart failure; I50.9 Heart failure, unspecified; E78.5 Hyperlipidemia, unspecified; N40.0 Benign prostatic hyperplasia without lower urinary tract symptoms; R97.20 Elevated prostate specific antigen [PSA]; E11.21 Type 2 diabetes mellitus with diabetic nephropathy; D72.829 Elevated white blood cell count, unspecified; Z95.0 Presence of cardiac pacemaker; Z79.82 Long term (current) use of aspirin; Z79.4 Long term (current) use of insulin; L08.89 Other specified local infections of the skin and subcutaneous tissue; E11.69 Type 2 diabetes mellitus with other specified complication
CPT/HCPCS: 36415; 80048; 80053; 80061; 85027; 85652; 87040; 87081; 87635; 96361; 96365; 96368; 99285; J1650; 73660; 83036; 83605; 85025; 86140; 87070; 87205; 99223; 99231; 99238; J0131; J2543

== ENCOUNTER 2022-06-07 13:52 | Inpatient (IN) | payer MEDICARE, SELFPAY ==
[2022-06-07] VITALS (38 sets, daily range): BP systolic 110–150; BP diastolic 69–98; PULSE 69–110; RESP 18–43; TEMP 36.1–36.8; O2SAT 95–99
--- NOTE | 2022-06-07 13:45 | RT.EKG_ITS ---
APPROVED REPORT Exam: Resting ECG Reason for Exam: sob Patient Location: E HR:101 bpm ECG Measurements Heart Rate 101 AXIS WI 159 P -26 QRSd 150 QRS -75 QT 374 T 94 QTc 485 Conclusion Ventricular-paced rhythm v paced rhythm,
--- NOTE | 2022-06-07 14:00 | DI.RAD_ITS ---
Exam(s) XR PORTABLE CHEST AP EXAM: XR PORTABLE CHEST AP CLINICAL HISTORY: sob, concern for chf. TECHNIQUE: 2D digital imaging was performed. COMPARISON: CR,XR XR PORTABLE CHEST AP from 08/22/2021 FINDINGS: Single AP portable view. Bipolar left subclavian pacemaker wires now evident Heart size is upper normal. The mediastinum is not widened. Bilateral pulmonary edema pattern. Probable small bilateral pleural effusions. IMPRESSION: Interstitial pulmonary edema. Small bilateral pleural effusions. Cardiac pacemaker. DATA REPOSITORY: RADIATION DOSE DELIVERED:
[2022-06-07 14:29] LABS: Abs Immature Grans 0.04 10^3/uL (0.0-0.06); Absolute Basophil Count 0.02 10^3/uL (0.0-0.2); Absolute Lymphocyte Count 1.12 10^3/uL (1.2-3.4); Absolute Monocyte Count 0.66 10^3/uL (0.1-0.8); Absolute Neutrophil Count 6.49 10^3/uL (1.2-6.7); Basophils % 0.2; Eosinophils % 1.2; HCT 34.1 % (40.0-50.0); HGB 10.9 g/dL (13.5-17.5); Immature Grans % 0.5; Lymphocytes % 13.3; MCH 30.5 pg (27.0-33.0); MCV 96 fL (80-95); MPV 10.3 fL (8.0-11.0); Monocytes % 7.8; Platelet Count 240 10^3/uL (130-400); RBC 3.57 10^6/uL (4.36-5.78); RDW-SD 56.1 fL; WBC 8.43 10^3/uL (4.4-10.8)
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
[2022-06-07 14:43] LABS: Prothrombin Time 10.1 sec (9.3-11.0)
[2022-06-07] MEDS: Furosemide 100 MG/10 ML VIAL 80 MG IVP (14:44)
[2022-06-07 14:53] LABS: ALT 55 U/L (16-63); AST 33 U/L (15-37); Albumin 3.4 g/dL (3.4-5.0); Alkaline Phosphatase 103 U/L (46-116); Anion Gap 12.9 mmol/L (3-11); BUN 33 mg/dL (7-18); Bilirubin, Total 0.8 mg/dL (0.2-1.0); CO2 18.1 mmol/L (21.0-32.0); CREATININE 1.5 mg/dL (0.70-1.30); Calcium 8.8 mg/dL (8.5-10.1); Chloride 108 mmol/L (98-107); Estimated GFR 47.36 (mL/min/1.73m2); Glucose 227 mg/dL (74-106); NT-proBNP 4362 pg/mL (<300); Potassium 4.8 mmol/L (3.5-5.1); Sodium 139 mmol/L (136-145); Total Protein 7.4 g/dL (6.4-8.2)
[2022-06-07 14:58] LABS: Troponin I 80 ng/L (<or=60)
[2022-06-07 15:20] LABS: COVID-19 PCR Negative (Negative); Influenza A PCR Negative (Negative); Influenza B PCR Negative (Negative); RSV PCR Negative (Negative)
[2022-06-07 15:32] LABS: Source Nasopharynx
[2022-06-07 16:36] LABS: Troponin I 83 ng/L (<or=60)
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
[2022-06-07] MEDS: Enoxaparin 40 MG/0.4 ML SYR SC (17:56)
[2022-06-07] MEDS: Tamsulosin 0.4 MG CAPCR PO (19:42)
[2022-06-07] MEDS: Lidocaine 2% Jelly 11 ML SYR UR (19:42)
[2022-06-07] MEDS: Atorvastatin 40 MG TAB 80 MG PO (19:42)
[2022-06-07 20:36] LABS: Troponin I 80 ng/L (<or=60)
[2022-06-07] MEDS: Acetaminophen 325 MG TAB PO (21:18)
[2022-06-08] VITALS (8 sets, daily range): BP systolic 98–136; BP diastolic 64–85; PULSE 70–94; RESP 16–20; TEMP 36.3–37.2; O2SAT 97–100
[2022-06-08 05:55] LABS: Hemoglobin A1C 7.1 % (<5.7)
[2022-06-08 06:16] LABS: Anion Gap 9.1 mmol/L (3-11); BUN 32 mg/dL (7-18); CO2 24.9 mmol/L (21.0-32.0); CREATININE 1.5 mg/dL (0.70-1.30); Calculated LDL 93 mg/dL (<100); Chloride 104 mmol/L (98-107); Cholesterol 164 mg/dL (<200); Estimated GFR 47.36 (mL/min/1.73m2); Glucose 126 mg/dL (74-106); HDL Cholesterol 53 mg/dL (40-60); Potassium 4.5 mmol/L (3.5-5.1); Sodium 138 mmol/L (136-145); TSH (W/Ref FT4) 1.65 uIU/mL (0.36-3.74); Triglyceride 93 mg/dL (<150)
--- NOTE | 2022-06-08 08:00 | DI.US_ITS ---
APPROVED REPORT EXAM: Comprehensive 2D, Doppler, and color-flow Echocardiogram Patient Location: In-Patient Room/Bed: [facility] Production Control Manager: Dmitry Borrego RDMS, RVT Indications: CHF, eval LV function, HTN, pacemaker Other Information Study Quality: Adequate Conclusion Normal left ventricular wall thickness and chamber size. Ejection fraction is 25 to 30% with global hypokinesis Right ventricle is normal in size. Right ventricular systolic function appears moderately reduced Left atrium is mildly enlarged. Right atrial size is normal Device lead noted in the right heart Aortic valve is sclerotic and trileaflet with trace regurgitation. There is no aortic stenosis Thickened mitral leaflets. Moderate mitral regurgitation Normal tricuspid valve with mild regurgitation. Estimated right ventricular systolic pressure is 38 mmHg Left pleural effusion Wall motion Left Ventricle The left ventricle is normal size. Left ventricular systolic function is decreased. There is normal left ventricular wall thickness. There is global hypokinesis of the left ventricle. There is no ventr icular septal defect visualized. LVEF is 25-30%. Right Ventricle The right ventricle is normal size. The right ventricular systolic function is moderately reduced The RVSP is 38.2 mmHg. Pacemaker lead is present in the right ventricle. Atria The left atrium size is mildly dilated The right atrium size is normal. The interatrial septum is int act with no evidence for an atrial septal defect. Aortic Valve The Aortic valve is sclerotic. Aortic valve is trileaflet. There is no aortic valvular stenosis. Tra ce aortic regurgitation. Mitral Valve Thickened mitral leaflets No evidence of mitral valve stenosis. Moderate mitral regurgitation. Tricuspid Valve The tricuspid valve is normal in structure. There is no tricuspid valve stenosis. Mild tricuspid reg urgitation. Pulmonic Valve The pulmonary valve is normal in structure. There is no pulmonic valvular stenosis. Trace pulmonic re gurgitation. Great Vessels The aortic root is normal in size. Ascending aorta is not well visualized. Aortic arch is normal in c aliber. IVC is normal in size and collapses >50% with inspiration. Pericardium There is no pericardial effusion. Moderate left pleural effusion. 2D Dimensions IVSD d PLAX 0.69 cm M: 0.6-1.2 LV Vol A2C d MOD 66.3 mL LVPW d PLAX 0.68 cm M: 0.6 - 1.2 LV Vol A4C d MOD 54.7 mL LVID d PLAX 3.89 cm M: 4.2 - 5.8 LA vol/ BSA A4C s A-L 14.7 mL/m2 LVDs 3.20 cm M: 2.5 - 4.0 LA Area A4C s MOD 10.28 cm2 Ao Root d 2.72 cm M: 3.1 - 3.7 LV EF A4C MOD 31.1 % LV EF Teichholz 36.9 % LV EF A2C MOD 31.1 % LVEF (Nelson's) 28.36 % M: 52 - 72 LV EF Biplane MOD 28.4 % LV Volume 48.73 mL M: 62 - 150 SV 17.22 mL LV Volume Index 29.53 mL/m2 M: 34 - 74 SV Index 10.42 mL/m2 LV Vol Biplane MOD 60.7 mL FS 17.40 % M-Mode TAPSE 0.94 cm (M/F) >1.7 LV Diastology MV E' medial 0.039 (>0.07 m/s) E/A Ratio 1.4 LV E/e MED 29.50 (<14) MV E Vmax 1.15 (0.4-1.3 m/s) MV E' lateral 0.059 (>0.1 m/s) MV A Vmax 0.85 (0.4-1.3 m/s) LV E/e LAT 19.65 (<14) MV E/A Ratio 1.30 MV E/E' medial 29.50 MV E/E' lateral 19.67 Aortic Valve LVOT Area 3.57 cm2 AoV Area Vmax 3.37 cm2 LVOT Vmax 0.95 m/s AoV Area/ BSA (Vmax) 2.04 cm2/m2 LVOT Mean Demarco. 0.81 m/s DUONG Mean Demarco. 3.70 cm2 LVOT Peak Grad 3.6 mmHg DUONG Mean Demarco. Index 2.24 cm2/m2 LVOT Mean Grad 2.7 mmHg LVOT VTI 0.141 m LVOT Diam s 2.10 cm AoV Vmax 1.01 m/s Velocity Ratio 0.94 AoV Mean Demarco. 0.78 m/s AoV Peak Grad 4.1 mmHg LVOT SV 50.39 mL AoV Mean Grad 2.7 mmHg AoV VTI 0.149 m AoV Area VTI 3.38 cm2 AoV Area/ BSA (VTI) 2.04 cm/m2 Mitral Valve MV DT 117 (160-240 msec) MV PHT 34 msec MV Area PHT 6.50 cm2 Tricuspid Valve TR Peak Grad 35.1 mmHg TR Vmax 2.97 m/s RA Pressure 3.00 mmHg RVSP (TR) 38.2 mmHg
[2022-06-08 08:34] LABS: Lab Add On Test DONE
[2022-06-08 08:56] LABS: Iron 34 ug/dL (65-175); Total Iron Binding Capacity 337 ug/dL (250-450); Transferrin Sat 10 % (20-55)
[2022-06-08] MEDS: Clopidogrel 75 MG TAB PO (09:04)
[2022-06-08] MEDS: Metoprolol CR 50 MG TABCR PO (09:04)
[2022-06-08] MEDS: amLODIPine 5 MG TAB PO (09:04)
[2022-06-08] MEDS: Aspirin E.C. 81 MG TABEC PO (09:04)
[2022-06-08] MEDS: Triamcinolone 0.1% OINT 15 GM TUBE TP (09:06)
[2022-06-08] MEDS: Insulin Aspart 300 UNITS/3 ML PEN SC ×4 (09:14→18:23)
--- NOTE | 2022-06-08 09:16 | NUR.NOTE ---
Nursing Note: At approximately 0910 on 06/08/22, RN was in pt.'s room to perform medication administration when pt. received a call from his son. After speaking with his son, pt. handed the phone to the RN and asked the RN to speak with his son. RN verified that the pt. was giving verbal consent for the RN to speak with his son as RN was unable to check pt.'s HIPAA at that time, before speaking to the pt.'s son. RN updated pt.'s son regarding pt.'s mentation, VS, pain level, plan of care, including continued administration of furosemide (Lasix) drip, use of the Waldron catheter, and MD orders for an echocardiogram and stress test, etc. with the pt.'s son. Pt.'s son verbalized understanding and presented with a few questions that were answered. RN then gave the phone back to the pt.
[2022-06-08 09:22] LABS: Ferritin 47 ng/mL (26-388); Folate 15.4 ng/mL (8.6-20.0)
[2022-06-08 09:23] LABS: Vitamin B12 < 80 pg/mL (193-986)
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
--- NOTE | 2022-06-08 11:42 | W.PM.PROGNOT ---
Date of Service Date of service: 06/08/22 Time of Service: 11:42 Assessment and Plan Assessment and plan (1) CHF (congestive heart failure): Status: Chronic Assessment and plan: DC Lasix drip convert to scheduled dose IV Lasix 40 mg BID. I did not add spironolactone as the patient had previously been on lisinopril and his potassium level is already in the mid fours. I will resume his lisinopril at a reduced dose monitor his electrolytes and then consider addition of spironolactone prior to discharge. I will add Jardiance to his regimen. Echocardiogram is being done this morning. We will schedule him for an outpatient stress MPI upon discharge. Patient is already on a beta-ceci. Professional time spent interviewing and examining patient, discussion of goals of care with hospital team (care management, nursing and consulting professionals) was 30 minutes. (2) Type 2 diabetes mellitus with diabetic nephropathy: Status: Acute Assessment and plan: Hold metformin and treat with bolus insulin with NovoLog with meal coverage as well as sliding scale. Monitor blood sugars before meals and at bedtime. Check glycohemoglobin A1c in the morning. Last glycohemoglobin A1c was 7.4% as of 09/26/2021 patient reports that his blood sugars at home have been running in the 120s to 130s. Continue NovoLog sliding scale along with meal coverage. Jardiance has been added for his heart failure as well as his renal failure and his diabetes mellitus. We will look into seeing if he qualifies for long-term use of Jardiance and also consider use of a GLP-1 agonist. (3) Peripheral vascular disease due to secondary diabetes: Status: Chronic Assessment and plan: Continue dual antiplatelet therapy (4) Hyperlipidemia: Status: Acute Assessment and plan: Continue atorvastatin. Check lipid profile in the morning. (5) Essential hypertension: Status: Acute Assessment and plan: Continue metoprolol XL however I will hold his lisinopril while we are actively diuresing him until we see how his renal function responds. As of this admission his BUN/creatinine were elevated at 33 and 1.5 respectively. His baseline BUN and creatinine as of 09/26/2021 was 13 and 1.0. There is been no changes BUN and creatinine remain elevated at 32 and 1.5. I have a feeling this is probably his new baseline. I will resume his lisinopril at a reduced dose starting tomorrow morning. (6) Acute kidney injury (nontraumatic): Status: Acute Assessment and plan: BUN/creatinine are elevated on admission at 33 and 1.5 and remain elevated, whereas his levels have been 30 and 1.0 back in September 2021. I think he is probably at new baseline renal function. We will resume his lisinopril at a reduced dose starting tomorrow morning. (7) Pacemaker: Status: Acute (8) DVT prophylaxis: Status: Acute Assessment and plan: enoxaparin SC Subjective Subjective Interval history since last seen: Patient states he is feeling better since he began the IV Lasix. No chest pain or pressure. Leg edema has improved. He feels that he cannot take a deep breath he is not having any orthopnea or PND. Exam Narrative Exam Narrative: Elderly male who is alert and oriented person place time circumstance lying in bed with his head elevated about 30 degrees. No acute distress not requiring any oxygen. Lungs are clear anteriorly posteriorly still has some fine bibasilar rales Heart is regular with a S3 gallop no soft systolic murmur over the apex Abdomen obese soft nontender he still has some ascites but the abdomen is less tense today. Lower extremities still has 1+ pitting edema but markedly improved over yesterday there is no calf tenderness Objective Last Vital Signs Temp 36.9 C 06/08/22 11:13 Pulse 90 06/08/22 11:13 Resp 20 06/08/22 11:13 BP 127/80 06/08/22 11:13 Pulse Ox 100 06/08/22 11:13 Laboratory Results - last 24 hr 06/07/22 06/07/22 06/07/22 14:13 14:13 14:13 WBC 8.43 RBC 3.57 L Hgb 10.9 L Hct 34.1 L MCV 96 H MCH 30.5 MCHC 32.0 RDW 16.0 H Plt Count 240 MPV 10.3 Immature Gran % 0.5 Neutrophils % 77.0 Lymphocytes % 13.3 Monocytes % 7.8 Eosinophils % 1.2 Basophils % 0.2 Nucleated RBC % 0.0 Absolute Neutrophils 6.49 Absolute Lymphocytes 1.12 L Absolute Monocytes 0.66 Absolute Eosinophils 0.10 Absolute Basophils 0.02 PT 10.1 INR 1.0 APTT 27.0 Sodium 139 Potassium 4.8 Chloride 108 H Carbon Dioxide 18.1 L Anion Gap 12.9 H BUN 33 H Creatinine 1.5 H Est GFR (CKD-EPI 2020) 47.36 Glucose 227 H Hemoglobin A1c Calcium 8.8 Iron TIBC Transferrin % Sat Ferritin Total Bilirubin 0.8 AST 33 ALT 55 Alkaline Phosphatase 103 Troponin I 80 H* NT-Pro-B Natriuret Pep 4362 H Total Protein 7.4 Albumin 3.4 Triglycerides Total Cholesterol LDL Cholesterol, Calc HDL Cholesterol Vitamin B12 Folate TSH COVID-19 Source SARS-CoV-2 (PCR) Influenza Type A (PCR) Influenza Type B (PCR) RSV (PCR) Add-On Test Request 06/07/22 06/07/22 06/07/22 14:24 16:09 20:00 WBC RBC Hgb Hct MCV MCH MCHC RDW Plt Count MPV Immature Gran % Neutrophils % Lymphocytes % Monocytes % Eosinophils % Basophils % Nucleated RBC % Absolute Neutrophils Absolute Lymphocytes Absolute Monocytes Absolute Eosinophils Absolute Basophils PT INR APTT Sodium Potassium Chloride Carbon Dioxide Anion Gap BUN Creatinine Est GFR (CKD-EPI 2020) Glucose Hemoglobin A1c Calcium Iron TIBC Transferrin % Sat Ferritin Total Bilirubin AST ALT Alkaline Phosphatase Troponin I 83 H* 80 H* NT-Pro-B Natriuret Pep Total Protein Albumin Triglycerides Total Cholesterol LDL Cholesterol, Calc HDL Cholesterol Vitamin B12 Folate TSH COVID-19 Source Nasopharynx SARS-CoV-2 (PCR) Negative Influenza Type A (PCR) Negative Influenza Type B (PCR) Negative RSV (PCR) Negative Add-On Test Request 06/08/22 06/08/22 06/08/22 05:25 05:25 05:45 WBC RBC Hgb Hct MCV MCH MCHC RDW Plt Count MPV Immature Gran % Neutrophils % Lymphocytes % Monocytes % Eosinophils % Basophils % Nucleated RBC % Absolute Neutrophils Absolute Lymphocytes Absolute Monocytes Absolute Eosinophils Absolute Basophils PT INR APTT Sodium 138 Potassium 4.5 Chloride 104 Carbon Dioxide 24.9 Anion Gap 9.1 BUN 32 H Creatinine 1.5 H Est GFR (CKD-EPI 2020) 47.36 Glucose 126 H Hemoglobin A1c 7.1 H Calcium 9.0 Iron TIBC Transferrin % Sat Ferritin Total Bilirubin AST ALT Alkaline Phosphatase Troponin I NT-Pro-B Natriuret Pep Total Protein Albumin Triglycerides 93 Total Cholesterol 164 LDL Cholesterol, Calc 93 HDL Cholesterol 53 Vitamin B12 Folate TSH 1.65 COVID-19 Source SARS-CoV-2 (PCR) Influenza Type A (PCR) Influenza Type B (PCR) RSV (PCR) Add-On Test Request DONE 06/08/22 06/08/22 05:45 05:45 WBC RBC Hgb Hct MCV MCH MCHC RDW Plt Count MPV Immature Gran % Neutrophils % Lymphocytes % Monocytes % Eosinophils % Basophils % Nucleated RBC % Absolute Neutrophils Absolute Lymphocytes Absolute Monocytes Absolute Eosinophils Absolute Basophils PT INR APTT Sodium Potassium Chloride Carbon Dioxide Anion Gap BUN Creatinine Est GFR (CKD-EPI 2020) Glucose Hemoglobin A1c Calcium Iron 34 L TIBC 337 Transferrin % Sat 10 L Ferritin 47 Total Bilirubin AST ALT Alkaline Phosphatase Troponin I NT-Pro-B Natriuret Pep Total Protein Albumin Triglycerides Total Cholesterol LDL Cholesterol, Calc HDL Cholesterol Vitamin B12 < 80 L Folate 15.4 TSH COVID-19 Source SARS-CoV-2 (PCR) Influenza Type A (PCR) Influenza Type B (PCR) RSV (PCR) Add-On Test Request Time Spent with Patient Time Spent with Patient: 25-34 minutes Time was spent: preparing to see the patient(eg.review tests), ordering medications,tests, procedures, indepentently interpreting results, counseling the patient and care coordination
[2022-06-08] MEDS: Furosemide 40 MG/4 ML VIAL IVP (15:39)
[2022-06-08] MEDS: Normal Saline Flush 10 ML SYR IVP (15:40)
[2022-06-08] MEDS: Enoxaparin 40 MG/0.4 ML SYR SC (18:24)
[2022-06-08] MEDS: Ferrous Sulfate 325 MG TAB PO (19:29)
[2022-06-08] MEDS: Atorvastatin 40 MG TAB 80 MG PO (19:29)
[2022-06-08] MEDS: Tamsulosin 0.4 MG CAPCR PO (19:29)
[2022-06-09] VITALS (10 sets, daily range): BP systolic 100–134; BP diastolic 60–86; PULSE 63–86; RESP 16–18; TEMP 36.2–37.1; O2SAT 94–99
[2022-06-09 07:28] LABS: HGB 12.4 g/dL (13.5-17.5); MCH 30.7 pg (27.0-33.0); MCHC 32.6 % (32.0-36.0); MCV 94 fL (80-95); MPV 10.7 fL (8.0-11.0); Platelet Count 239 10^3/uL (130-400); RBC 4.04 10^6/uL (4.36-5.78); RDW 16.2 % (11.8-14.1); RDW-SD 55.7 fL; WBC 7.58 10^3/uL (4.4-10.8)
[2022-06-09 07:29] LABS: Anion Gap 12.9 mmol/L (3-11); BUN 37 mg/dL (7-18); CO2 24.1 mmol/L (21.0-32.0); CREATININE 1.6 mg/dL (0.70-1.30); Calcium 8.9 mg/dL (8.5-10.1); Chloride 104 mmol/L (98-107); Estimated GFR 43.83 (mL/min/1.73m2); Glucose 117 mg/dL (74-106); Magnesium 2.1 mg/dL (1.8-2.4); Potassium 3.8 mmol/L (3.5-5.1); Sodium 141 mmol/L (136-145)
[2022-06-09] MEDS: Lisinopril 10 MG TAB PO (08:17)
[2022-06-09] MEDS: Clopidogrel 75 MG TAB PO (08:17)
[2022-06-09] MEDS: Metoprolol CR 50 MG TABCR PO (08:17)
[2022-06-09] MEDS: Ferrous Sulfate 325 MG TAB PO ×2 (08:17→19:57)
[2022-06-09] MEDS: Aspirin E.C. 81 MG TABEC PO (08:17)
[2022-06-09] MEDS: amLODIPine 5 MG TAB PO (08:17)
[2022-06-09] MEDS: Empaglifozin 10 MG TAB PO (08:17)
[2022-06-09] MEDS: Cyanocobalamin 1000 MCG/ML VIAL IM/SC (08:18)
[2022-06-09] MEDS: Furosemide 40 MG/4 ML VIAL IVP (08:18)
[2022-06-09 08:31] LABS: NT-proBNP 3669 pg/mL (<300)
[2022-06-09 08:40] LABS: Troponin I 64 ng/L (<or=60)
[2022-06-09 08:53] LABS: Lab Add On Test DONE
[2022-06-09] MEDS: Insulin Aspart 300 UNITS/3 ML PEN SC ×4 (09:18→18:14)
--- NOTE | 2022-06-09 12:55 | W.PM.PROGNOT ---
Date of Service Date of service: 06/09/22 Time of Service: 12:55 Assessment and Plan Assessment and plan (1) CHF (congestive heart failure): Status: Chronic Assessment and plan: Echocardiogram demonstrates global LV hypokinesis with an EF 25 to 30%. RV systolic function appears to be moderately reduced. He has moderate MR and no AAS only trace of AI. He has mild TR with an RVSP of 38 mm. Patient's had a cumulative loss of 3 L so far. Weight is dropped 7 kg from 62.6 kg down to 55.4 kg. We will take him off the IV Lasix put him on oral Lasix 40 mg twice a day and add low-dose spironolactone. Because his blood pressures were soft we will reduce his lisinopril down to 10 mg daily. I checked his insurance coverage for Entresto and the cost would be over $600 a month making it unaffordable. Therefore we will just keep him on an MATTHEW inhibitor and titrate the dose. As for the Jardiance again its can cost him over $600 a month. We will schedule patient for stress MPI to look for residual ischemia. We will have her local medical office receptionist assistant see him while he is hospitalized but I will also touch base with his outpatient medical office receptionist assistant Dr. Guerrero in [place]. Professional time spent interviewing and examining patient, discussion of goals of care with hospital team (care management, nursing and consulting professionals) was 45 minutes. (2) Type 2 diabetes mellitus with diabetic nephropathy: Status: Acute Assessment and plan: Poorly controlled diabetes mellitus last hemoglobin A1c 7.4% as of 09/26/2021. Now currently at 7.1% goal is for an A1c under 7%.Blood sugars here have been running between 126 to 170 mg/dL. Metformin is on hold he is currently receiving insulin with NovoLog per insulin sensitive sliding scale along with carbohydrate coverage at a 1:10 ratio. Continue NovoLog sliding scale along with meal coverage. We will ask early childhood educator aide to work with him and see if we can get him on once a day injection of Lantus since his insurance will not cover empagliflozin. Patient was found to have a B12 deficiency probably combination of his vegetarian diet along with his use of metformin. (3) Peripheral vascular disease due to secondary diabetes: Status: Chronic Assessment and plan: Continue dual antiplatelet therapy (4) Hyperlipidemia: Status: Acute Assessment and plan: Continue atorvastatin. Check lipid profile in the morning. (5) Essential hypertension: Status: Acute Assessment and plan: Lisinopril to be resumed at a reduced dose of 10 mg/day continue his current dose of Toprol-XL. Patient is also on amlodipine 5 mg daily. (6) Acute kidney injury (nontraumatic): Status: Acute Assessment and plan: BUN/creatinine are elevated on admission at 33 and 1.5 and remain elevated, whereas his levels have been 30 and 1.0 back in September 2021. I think he is probably at new baseline renal function. We will resume his lisinopril at a reduced dose starting tomorrow morning. (7) Pacemaker: Status: Acute (8) DVT prophylaxis: Status: Acute Assessment and plan: enoxaparin SC (9) B12 deficiency: Status: Acute Subjective Subjective Interval history since last seen: Mr Padilla states that his breathing is much improved. No PND or orthopnea last night. He is no longer requiring supplemental oxygen. Leg edema is improved. He denies any chest pain or pressure. I ran his insurance to check his coverage for Jardiance and for Entresto, each of these medications would cost him about $580 to $600 per month (even w/ the Good Rx discount still would be about 580). He would like to return home. However, I told him that I would like to titrate him on oral medications which he can afford. I also would like him to get a stress MPI to see if he has residual ischemia. I will get cardiology consult to see him here. He has been seeing Dr. Vargas in [facility]. Exam Narrative Exam Narrative: Mr. Padilla is alert and oriented x3 sitting up in a chair no acute distress able to talk in complete sentences without dyspnea. Lungs are clear on the left side right side he still has markedly diminished breath sounds over the right base no rhonchi or wheezes Heart is regular Abdomen soft and nontender Lower extremities no peripheral edema Objective Last Vital Signs Temp 37.1 C 06/09/22 11:17 Pulse 84 06/09/22 11:17 Resp 17 06/09/22 11:17 BP 100/60 06/09/22 11:17 Pulse Ox 97 06/09/22 11:17 Laboratory Results - last 24 hr 06/09/22 06/09/22 06/09/22 05:55 05:55 05:55 WBC 7.58 RBC 4.04 L Hgb 12.4 L Hct 38.0 L MCV 94 MCH 30.7 MCHC 32.6 RDW 16.2 H Plt Count 239 MPV 10.7 Sodium 141 Potassium 3.8 Chloride 104 Carbon Dioxide 24.1 Anion Gap 12.9 H BUN 37 H Creatinine 1.6 H Est GFR (CKD-EPI 2020) 43.83 Glucose 117 H Calcium 8.9 Magnesium 2.1 Troponin I NT-Pro-B Natriuret Pep Add-On Test Request DONE 06/09/22 05:55 WBC RBC Hgb Hct MCV MCH MCHC RDW Plt Count MPV Sodium Potassium Chloride Carbon Dioxide Anion Gap BUN Creatinine Est GFR (CKD-EPI 2020) Glucose Calcium Magnesium Troponin I 64 H* NT-Pro-B Natriuret Pep 3669 H Add-On Test Request Time Spent with Patient Time Spent with Patient: 35-49 minutes Time was spent: preparing to see the patient(eg.review tests), obtaining and/or reviewing separately otained hiistory, ordering medications,tests, procedures, referring, communicating with other health career information specialist, indepentently interpreting results, counseling the patient and care coordination
--- NOTE | 2022-06-09 13:21 | PDOC.CMPRO ---
- If Service Date Differs Date of service: 06/09/22 Time of Service: 13:21 Care Management Progress Note S/O: Geo was lying in bed when CM met with him. He stated that per MD, he will remain overnight and have a stress test tomorrow. His medications continue to be adjusted. He is comfortable with the plan of care. CM will continue to follow. A: Geo is a 76 yr old male admitted on 06/07/22 on acute on chronic CHF, elevated troponin. P: Anticipate Geo will return home when medically cleared, and will transport via private vehicle by family. He will follow up with his PCP and discharge plan of care. CM will continue to follow.
[2022-06-09] MEDS: Furosemide 40 MG TAB PO (16:25)
[2022-06-09] MEDS: Enoxaparin 30 MG/0.3 ML SYR SC (18:14)
[2022-06-09] MEDS: Atorvastatin 40 MG TAB 80 MG PO (19:57)
[2022-06-09] MEDS: Tamsulosin 0.4 MG CAPCR PO (19:57)
[2022-06-09 20:03] LABS: Homocysteine >50.0 umol/L (5.0-13.9)
[2022-06-10 00:36] VITALS: PULSE 78
[2022-06-10 03:35] VITALS: BP 129/80; PULSE 85; RESP 17; TEMP 36.7; O2SAT 99
[2022-06-10 06:07] VITALS: BP 123/76; PULSE 83; RESP 18; TEMP 36.3; O2SAT 95
[2022-06-10 06:55] LABS: Anion Gap 12.1 mmol/L (3-11); BUN 41 mg/dL (7-18); CO2 27.9 mmol/L (21.0-32.0); CREATININE 1.8 mg/dL (0.70-1.30); Calcium 8.9 mg/dL (8.5-10.1); Chloride 101 mmol/L (98-107); Estimated GFR 38.05 (mL/min/1.73m2); Glucose 146 mg/dL (74-106); Potassium 3.6 mmol/L (3.5-5.1); Sodium 141 mmol/L (136-145)
--- NOTE | 2022-06-10 07:00 | DI.NM_ITS ---
APPROVED REPORT Exam: Pharmacologic Patient Location: In-Patient Room/Bed: [facility] [place] Stress Nurse: Arabella Summers RN Ordering Provider:CORINNA LEAHY, Contact Number: [phone] BMI: 21.96 Baseline Rhythm: Paced Indications: Dyspnea, CHF Medical History Medical History: CHF, T2DM, PVD, HLD, HTN, acute DAPHNE, pacemaker (V paced) Cardiac Medications: metoprolol succinate, aspirin, amlodipine, atorvastatin, clopidogrel, ferous sul fate, lisinopril, nitro, spironolactone, tamsulosin, furosemide Allergies: NKA Cardiac Risk Factors: Family hx, HTN, PVD, CVD, diabetes, HLD Previous Cardiac Procedures: Pacemaker placement-08/26/21 Pretest Chest Pain Characteristics: None Exercise History: Sedentary Physical Disabilities: None Lung Sounds: Clear to auscultation Heart Sounds: Regular Stress Test Details Test: Pharmacologic stress testing performed using 0.4 mg of regadenoson per 5 mL given IV over 10 s econds. Reason for pharmacologic stress test: V paced. Nuclear Acquisition: Rest Tc-99m/Stress Tc-99m 1 day Rest Isotope: Tc-99m Sestamibi. Dose: 10.0 Date: 06/10/2022 Injection Time: 0920 Stress Isotope: Tc-99m Sestamibi. Dose: 31.0 Date: 06/10/2022 Injection Time: 1125 HR Resting HR Supine: 81 bpm Max Heart Rate (APMHR): 142.822256 bpm Target HR (85% APMHR): 120.505431 bpm Max HR Achieved: 90 bpm % of APMHR: 63.38 Recovery HR: 83 bpm BP Resting BP Supine: 94/58 mmHg Max BP: 102/62 mmHg Recovery BP: 92/54 mmHg ECG Resting ECG: Paced Rhythm Ectopy: PVC's Stress ECG: Paced Rhythm ST Change: Nondiagnostic low heart rate Arrhythmia: PVC's Recovery ECG: Paced Rhythm Recovery ST Change: Nondiagnostic low heart rate Recovery Arrhythmia: PVC's Clinical Stress Symptoms: Moderate dyspnea Angina Score: None Rate Pressure Product: 9180 Stress ECG Conclusion 1. The resting electrocardiogram showed atrial sensed ventricular paced rhythm 2. Patient underwent testing using pharmacologic stress with regadenoson 3. The electrocardiographic portion of the test was nondiagnostic due to paced rhythm and inadequate heart rate 4. See MPI report Stress Test Summary STAGE HR BP SpO2 Symptoms NOTES Supine 81 94/58 98 1 min post Lexiscan injection 82 102/62 95 Mod dyspnea 3 min post Lexiscan injection 86 92/54 98 Dyspnea resolving 6 min post Lexiscan injection 83 92/54 96 Dyspnea resolved MPI Conclusion Myocardial perfusion is normal. There is no myocardial ischemia or evidence of prior infarction There is severe global hypokinesis with a calculated ejection fraction of 12% Radiologist Interpretation Radiologist agrees with Hyperbaric Technologist's Interpretation. Radiologist Interpretation by: Schuyler Wells MD Interpretation Date/Time: 06/11/2022 12:21:20
[2022-06-10 07:10] VITALS: PULSE 87
[2022-06-10] MEDS: Furosemide 40 MG TAB PO (08:14)
[2022-06-10] MEDS: Aspirin E.C. 81 MG TABEC PO (08:14)
[2022-06-10] MEDS: Cyanocobalamin 1000 MCG/ML VIAL IM/SC (08:14)
[2022-06-10] MEDS: Empaglifozin 10 MG TAB PO (08:15)
[2022-06-10] MEDS: Clopidogrel 75 MG TAB PO (08:15)
[2022-06-10] MEDS: Ferrous Sulfate 325 MG TAB PO (08:15)
[2022-06-10] MEDS: Lisinopril 5 MG TAB PO (08:15)
[2022-06-10] MEDS: Spironolactone 25 MG TAB 12.5 MG PO (08:15)
[2022-06-10] MEDS: amLODIPine 5 MG TAB PO (08:15)
[2022-06-10] MEDS: Metoprolol CR 50 MG TABCR PO (08:15)
[2022-06-10] MEDS: Insulin Aspart 300 UNITS/3 ML PEN SC ×4 (08:16→12:36)
--- NOTE | 2022-06-10 10:40 | W.INDIABCONS ---
Date of service: 06/10/22 Time of Service: 10:40 Diabetes Inpatient Consult Reason for Visit: dm2 DESCRIPTION/ASSESSMENT: Received Diabetes consult. Geo is 76 yo vegetarian with CHF, DM2, PVD, HLD with HTN. BMI wnl. A1C: 7.1% (06/08/22) at target in view of advanced age and comoribidities per [place] [employer]. Would not recommend adding lantus at this time as Dm well controlled with metformin. INTERVENTION: Will visit with Geo prior to discharge to review meal adequacy and glycemic control PLAN: Will follow up Time Spent in Nutritional Counseling and Treatment: 0
[2022-06-10] MEDS: Regadenoson 0.4 MG/5 ML SYR IVP (11:35)
--- NOTE | 2022-06-10 14:10 | PDOC.CMDIS ---
- If Service Date Differs Date of service: 06/10/22 Time of Service: 14:10 LACE Index Scoring Tool - Questions: Length of Stay (in days): 3 Acuity (Admit via E.D.?): Yes Comorbidities: Diabetes w/o Complication, Congestive Heart Failure E.D. Visits: 3 - Answers: Total Score: 12 Risk of Readmission: High Risk Care Management Discharge Reason for Hospitalization: Acute on chronic CHF, Elevated troponin Discharge Plan: Geo was discharged home today with no new services. His drove him home via private vehicle. He will follow up with his PCP and discharge plan of care. He is happy to be going home. Patient/Family Education Needs: Review discharge instructions and limitations, discussion of self care needs including ask me three.
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
--- NOTE | 2022-06-10 15:08 | NUR.NOTE ---
0985 patient was DC. PIV to LAC was removed as well as tele. All of patients belongings were bagged & given to the patient. DC instructions were reviewed with patient & his family. All questions & or concerns were addressed. PT was taken down stairs via wheelchair & assisted into the patients van. Nursing Note:
[2022-06-10 18:00] LABS: Intrinsic Factor Blocking Ab Positive (Negative)
== END 2022-06-10 14:52 | disposition home or self-care (01) | DRG 292 ==
LOC: ER 16:43 → MS 17:28
PROVIDERS: Internal Medicine; Admitting Provider Internal Medicine; Emergency Provider Emergency Medicine; PCP Nurse Practitioner Family; Visit Provider Internal Medicine
DX: I42.8 Other cardiomyopathies (principal); N17.9 Acute kidney failure, unspecified; E78.5 Hyperlipidemia, unspecified; E11.9 Type 2 diabetes mellitus without complications; Z79.4 Long term (current) use of insulin; Z79.84 Long term (current) use of oral hypoglycemic drugs; Z95.0 Presence of cardiac pacemaker; N40.0 Benign prostatic hyperplasia without lower urinary tract symptoms; E11.22 Type 2 diabetes mellitus with diabetic chronic kidney disease; E11.51 Type 2 diabetes mellitus with diabetic peripheral angiopathy without gangrene; Z89.421 Acquired absence of other right toe(s); E53.8 Deficiency of other specified B group vitamins; N18.9 Chronic kidney disease, unspecified; I50.43 Acute on chronic combined systolic (congestive) and diastolic (congestive) heart failure; I13.0 Hypertensive heart and chronic kidney disease with heart failure and stage 1 through stage 4 chronic kidney disease, or unspecified chronic kidney disease
CPT/HCPCS: 36415; 78452; 80048; 80053; 80061; 80186; 83090; 85027; 87637; 93005; 93016; 93018; 93306; 96374; 99285; J1650; 71045; 82607; 82728; 82746; 83036; 83540; 83550; 83735; 83880; 84443; 84484; 85025; 85610; 85730; 86340; 93010; 93017; 99223; 99232; 99233; 99239; J1940; J2785; J3420

== ENCOUNTER → 2022-06-10 07:35 | Outpatient (BNVA) | payer MEDICARE, SELFPAY | PROVIDERS: PCP Nurse Practitioner Family; Referring Provider Nurse Practitioner Family; Visit Provider Internal Medicine Cardiovascular Disease ==

== ENCOUNTER 2022-06-17 01:39 | Outpatient (RCR) | payer MEDICARE, SELFPAY ==
[2022-06-11] MEDS: Cyanocobalamin 1000 MCG/ML VIAL (12:35)
[2022-06-12] MEDS: Cyanocobalamin 1000 MCG/ML VIAL (12:50)
[2022-06-13] MEDS: Cyanocobalamin 1000 MCG/ML VIAL IM/SC (12:49)
[2022-06-14] MEDS: Cyanocobalamin 1000 MCG/ML VIAL IM/SC (07:25)
[2022-06-15] MEDS: Cyanocobalamin 1000 MCG/ML VIAL IM/SC (12:43)
[2022-06-16] MEDS: Cyanocobalamin 1000 MCG/ML VIAL IM/SC (12:41)
[2022-06-17] MEDS: Cyanocobalamin 1000 MCG/ML VIAL (12:35)
== END 2022-06-20 23:59 | disposition home or self-care (01) ==
LOC: INF 01:39
PROVIDERS: PCP Nurse Practitioner Family; Visit Provider Internal Medicine
DX: E53.8 Deficiency of other specified B group vitamins (principal)
CPT/HCPCS: 96372; J3420

== ENCOUNTER 2022-07-06 08:16 | Outpatient (CLI) | payer MEDICARE, SELFPAY ==
--- NOTE | 2022-07-06 08:15 | RT.EKG_ITS ---
APPROVED REPORT Exam: Resting ECG Reason for Exam: hf Patient Location: O HR:94 bpm ECG Measurements Heart Rate 94 AXIS TN 208 P 17 QRSd 145 QRS -80 QT 406 T 81 QTc 508 Conclusion Atrial-sensed ventricular-paced complexes...other complexes also detected No further analysis attempted due to paced rhythm
== END 2022-07-06 08:17 | disposition home or self-care (01) ==
LOC: DI.CARD 08:17
PROVIDERS: PCP Nurse Practitioner Family; Visit Provider Internal Medicine Cardiovascular Disease
DX: I50.9 Heart failure, unspecified (principal); Z95.0 Presence of cardiac pacemaker
CPT/HCPCS: 93010

== ENCOUNTER → 2022-07-06 10:46 | Outpatient (BNVA) | payer MEDICARE, SELFPAY | PROVIDERS: PCP Nurse Practitioner Family; Referring Provider Nurse Practitioner Family; Visit Provider Internal Medicine Cardiovascular Disease | DX: I11.0 Hypertensive heart disease with heart failure (principal); E11.51 Type 2 diabetes mellitus with diabetic peripheral angiopathy without gangrene; E11.21 Type 2 diabetes mellitus with diabetic nephropathy; I50.9 Heart failure, unspecified; Z95.0 Presence of cardiac pacemaker | CPT/HCPCS: 93005; 99203; 99214 ==

== ENCOUNTER 2022-07-15 02:38 | Outpatient (RCR) | payer MEDICARE, SELFPAY ==
[2022-06-24] MEDS: Cyanocobalamin 1000 MCG/ML VIAL IM (12:35)
[2022-07-01] MEDS: Cyanocobalamin 1000 MCG/ML VIAL IM/SC (12:48)
[2022-07-06 12:44] LABS: Methylmalonic Acid 0.25 nmol/mL (<=0.40)
[2022-07-08] MEDS: Cyanocobalamin 1000 MCG/ML VIAL IM (12:24)
[2022-07-15] MEDS: Cyanocobalamin 1000 MCG/ML VIAL IM (12:43)
[2022-07-15 13:00] LABS: Abs Immature Grans 0.04 10^3/uL (0.0-0.06); Absolute Basophil Count 0.04 10^3/uL (0.0-0.2); Absolute Eosinophil Count 0.27 10^3/uL (0.0-0.7); Absolute Lymphocyte Count 1.61 10^3/uL (1.2-3.4); Absolute Monocyte Count 0.55 10^3/uL (0.1-0.8); Absolute Neutrophil Count 4.13 10^3/uL (1.2-6.7); Basophils % 0.6; Eosinophils % 4.1; HCT 39.4 % (40.0-50.0); HGB 12.7 g/dL (13.5-17.5); Immature Grans % 0.6; Lymphocytes % 24.2; MCH 29.7 pg (27.0-33.0); MCHC 32.2 % (32.0-36.0); MCV 92 fL (80-95); MPV 10.8 fL (8.0-11.0); Monocytes % 8.3; Neutrophils % 62.2; Platelet Count 204 10^3/uL (130-400); RBC 4.28 10^6/uL (4.36-5.78); RDW 13.9 % (11.8-14.1); RDW-SD 47.5 fL; WBC 6.64 10^3/uL (4.4-10.8)
== END 2022-07-21 23:59 | disposition home or self-care (01) ==
LOC: INF 02:38
PROVIDERS: PCP Nurse Practitioner Family; Visit Provider Internal Medicine
DX: E53.8 Deficiency of other specified B group vitamins (principal)
CPT/HCPCS: 36415; 80048; 80186; 96372; 85025; J3420

== ENCOUNTER 2022-08-12 01:55 | Outpatient (RCR) | payer MEDICARE, SELFPAY ==
[2022-08-12] MEDS: Cyanocobalamin 1000 MCG/ML VIAL IM (12:37)
[2022-08-12 13:15] LABS: Anion Gap 8.5 mmol/L (3-11); BUN 16 mg/dL (7-18); CO2 27.5 mmol/L (21.0-32.0); CREATININE 1.2 mg/dL (0.70-1.30); Calcium 9.1 mg/dL (8.5-10.1); Chloride 104 mmol/L (98-107); Glucose 265 mg/dL (74-106); Potassium 5.6 mmol/L (3.5-5.1); Sodium 140 mmol/L (136-145)
== END 2022-08-20 23:59 | disposition home or self-care (01) ==
LOC: INF 01:55
PROVIDERS: PCP Nurse Practitioner Family; Visit Provider Internal Medicine
DX: E53.8 Deficiency of other specified B group vitamins (principal)
CPT/HCPCS: 36415; 80048; 96372; J3420

== ENCOUNTER 2022-09-09 02:05 | Outpatient (RCR) | payer MEDICARE, SELFPAY ==
[2022-09-09] MEDS: Cyanocobalamin 1000 MCG/ML VIAL IM (12:52)
[2022-09-09 15:07] LABS: Vitamin B12 1203 pg/mL (193-986)
== END 2022-09-20 23:59 | disposition home or self-care (01) ==
LOC: INF 02:05
PROVIDERS: PCP Nurse Practitioner Family; Visit Provider Internal Medicine
DX: E53.8 Deficiency of other specified B group vitamins (principal)
CPT/HCPCS: 82607; J3420

== ENCOUNTER → 2022-10-11 03:48 | Outpatient (CLI) | payer MEDICARE, SELFPAY ==
--- NOTE | 2022-10-11 08:00 | DI.US_ITS ---
APPROVED REPORT EXAM: Comprehensive 2D, Doppler, and color-flow Echocardiogram Patient Location: Out-Patient Signalling And Communications Engineer: Gail Sweeney RDCS (AE) Indications: Recheck LV function, HTN Other Information Study Quality: Adequate Conclusion Normal left ventricular wall thickness and chamber size. Ejection fraction is 45%. There is global hypokinesis Normal right ventricular size and systolic function Both atria are normal in size Device lead noted in the right heart Aortic valve is sclerotic and trileaflet with trace regurgitation Mitral annular calcification, mild mitral regurgitation Normal tricuspid valve with trace regurgitation. Estimated right ventricular systolic pressure is 29 mmHg Wall motion Left Ventricle The left ventricle is normal size. Left ventricular systolic function is mildly to moderately decreas ed. There is normal left ventricular wall thickness. There is global hypokinesis of the left ventricl e. There is no ventricular septal defect visualized. LVEF is 45%. Right Ventricle The right ventricle is normal size. The right ventricular systolic function is normal. Pacemaker lead is present in the right ventricle. Atria The left atrium size is normal. The right atrium size is normal. The interatrial septum is intact wit h no evidence for an atrial septal defect. Aortic Valve The Aortic valve is sclerotic. Aortic valve is trileaflet. There is no aortic valvular stenosis. Trac e aortic regurgitation. Mitral Valve There is mitral annular calcification. No evidence of mitral valve stenosis. Mild mitral regurgitatio n. Tricuspid Valve The tricuspid valve is normal in structure. There is no tricuspid valve stenosis. Trace tricuspid reg urgitation. The RVSP is 28.8 mmHg. Pulmonic Valve The pulmonary valve is normal in structure. There is no pulmonic valvular stenosis. Trace pulmonic re gurgitation. Great Vessels The aortic root is normal in size. The ascending aorta is normal in size. Aortic arch is normal in ca liber. IVC is normal in size and collapses >50% with inspiration. Pericardium There is no pericardial effusion. 2D Dimensions IVSD d PLAX 0.95 cm M: 0.6-1.2 LVPW d PLAX 1.03 cm M: 0.6 - 1.2 LVID d PLAX 4.38 cm M: 4.2 - 5.8 LVDs 3.45 cm M: 2.5 - 4.0 Ao Root d 3.38 cm M: 3.1 - 3.7 RA Area A4C 11.59 cm2 Ao Asc Diam d 3.38 cm M: 2.6 - 3.4 LV EF Teichholz 42.1 % FS 20.50 % M-Mode TAPSE 2.00 cm (M/F) >1.7 LV Diastology MV E' medial 0.049 (>0.07 m/s) E/A Ratio 0.7 LV E/e MED 18.79 (<14) MV E Vmax 0.91 (0.4-1.3 m/s) MV E' lateral 0.084 (>0.1 m/s) MV A Vmax 1.35 (0.4-1.3 m/s) LV E/e LAT 10.82 (<14) MV E/E' medial 18.79 MV E/E' lateral 10.82 MV (E/E' average) 13.73 Aortic Valve LVOT Vmax 1.22 m/s AoV Area Vmax 2.29 cm2 LVOT Peak Grad 5.9 mmHg AR Vmax 2.94 m/s LVOT Mean Grad 3.4 mmHg AR DT 3184 msec LVOT Diam s 1.90 cm AR PHT 923 msec AoV Vmax 2.94 m/s AV Regurg Peak Gr. 34.50 mmHg Velocity Ratio 0.41 AoV Peak Grad 34.5 mmHg LVOT SV 70.84 mL AoV Mean Grad 5.5 mmHg AoV Area VTI 2.13 cm2 Mitral Valve MV DT 257 (160-240 msec) MV Vmax TIPS 1.29 m/s MV Mean Grad 2.7 (<2mmHg) MV VTI 0.266 m Pulmonary Valve PV Mean Grad 2.2 mmHg RVOT Peak Gr. 1.89 mmHg RVOT Mean Gr. 1.05 mmHg RVOT VTI 0.131 m RVOT Vmax 0.69 m/s Tricuspid Valve TR Peak Grad 25.8 mmHg TR Vmax 2.54 m/s RA Pressure 3.00 mmHg RVSP (TR) 28.8 mmHg
--- NOTE | 2022-10-11 13:31 | DI.RAD_ITS ---
Exam(s) XR CHEST 2V PA LATERAL EXAM: XR CHEST 2V PA LATERAL CLINICAL HISTORY: Congestive heart failure,i50.9 TECHNIQUE: 2D digital imaging was performed of the chest. Two images were obtained. PA and lateral views were obtained. COMPARISON: CR,XR XR CHEST 2V PA LATERAL from 12/31/2020 CR XR PORTABLE CHEST AP from 06/07/2022 FINDINGS: MEDIASTINUM: Normal. HEART: Normal. Cardiac pacing device is stable. PULMONARY VASCULATURE: Normal. LUNGS: Clear. PLEURAL SPACE: No pleural effusion or pneumothorax. BONE:Within normal limits for the patient's age. OTHER FINDINGS:Normal. IMPRESSION: No acute pulmonary findings. DATA REPOSITORY: RADIATION DOSE DELIVERED:
== END ==
PROVIDERS: PCP Nurse Practitioner Family; Visit Provider Internal Medicine Cardiovascular Disease
DX: I10 Essential (primary) hypertension (principal); I50.9 Heart failure, unspecified
CPT/HCPCS: 93306; 71046

== ENCOUNTER 2022-10-18 02:42 | Outpatient (CLI) | payer MEDICARE, SELFPAY ==
[2022-10-18 15:39] LABS: Anion Gap 6.3 mmol/L (3-11); BUN 20 mg/dL (7-18); CO2 28.7 mmol/L (21.0-32.0); CREATININE 1.2 mg/dL (0.70-1.30); Calcium 9.5 mg/dL (8.5-10.1); Chloride 103 mmol/L (98-107); Glucose 146 mg/dL (74-106); Potassium 4.5 mmol/L (3.5-5.1); Sodium 138 mmol/L (136-145); Vitamin B12 1357 pg/mL (193-986)
== END 2022-10-18 02:43 | disposition home or self-care (01) ==
LOC: LBO 02:42
PROVIDERS: PCP Nurse Practitioner Family; Visit Provider Nurse Practitioner Family
DX: I10 Essential (primary) hypertension (principal); E53.8 Deficiency of other specified B group vitamins
CPT/HCPCS: 36415; 80048; 82607

== ENCOUNTER → 2022-10-26 10:09 | Outpatient (BNVA) | payer MEDICARE, SELFPAY | PROVIDERS: PCP Nurse Practitioner Family; Referring Provider Nurse Practitioner Family; Visit Provider Internal Medicine Cardiovascular Disease | DX: I50.20 Unspecified systolic (congestive) heart failure (principal); Z95.0 Presence of cardiac pacemaker | CPT/HCPCS: 99214 ==